=== PATIENT | female | born 1960 | race Caucasian/White ===

== ENCOUNTER → 2016-12-12 | Day surgery (SDC) | payer OTHER ==
[2016-12-05 11:06] VITALS: Ht 154.9 cm; Wt 138.6 kg
[~2016-12-12] VITALS: Ht 154.9 cm; Wt 138.6 kg
[~2016-12-12] MED LIST: ATOR10TA88 PO; LIDOCAINE HCL 2% 2 ML VIAL (20MG/ML) ONE; LISI10TA PO; PHENYLEPHRINE 100MCG/ML 5ML SYR ONE; PROPOFOL IV EMULSION 10 MG/ML 20 ML VIAL IV ONE; SODIUM CHLORIDE 0.9% 500ML 500 ML IV ONE; TRIA75TA53 PO
--- NOTE | 2016-12-12 10:32 | Endo History and Physical ---
History & Physical Date of Service: Dec 12, 2016. Chief Complaint: screening Referring Physician: Dr. Indira Martinez History of Present Illness Family history of colon cancer (father), screening colonoscopy. Past Medical History Blood Dyscrasias, High Cholesterol, Sleep Apnea, Hypertension Past Surgical History Hx Cardiac Surgery: No Hx Internal Defibrillator: No Hx Pacemaker: No Hx Abdominal Surgery: Yes (APPY) Hx of Implantable Prosthesis: No Hx Post-Op Nausea and Vomiting: No Hx Cancer Surgery: Yes (CATALINO BSO) Hx Thoracic Surgery: No Hx Orthopedic: No Hx Urinary Tract Surgery: No Family History None Social History Smoking Status: Never Smoker Hx Substance Use: No Hx Alcohol Use: No Allergies Coded Allergies: No Known Allergies (Verified , 12/12/16) Current Medications Reported Home Medications Medications Dose Route/Sig Max Daily Dose Days Date Category Maxzide 75MG/50MG (Triamterene/HCTZ) Tab 0.5 Tab PO QAM 11/27/16 Reported Lipitor (Atorvastatin Calcium) 10 Mg Tab 10 Mg PO QAM 01/10/15 Reported Prinivil (Lisinopril) 10 Mg Tab 10 Mg PO QAM 01/10/15 Reported Vital Signs Weight (Kilograms): 138.64 Height (Feet): 5 Height (Inches): 1 Date Time Temp Pulse Resp B/P Pulse Ox O2 Delivery O2 Flow Rate FiO2 12/12/16 10:27 36.6 68 22 230/84 96 Room Air Physical Exam General Appearance: WD/WN, no apparent distress, + obese Respiratory/Chest: Auscultation: breath sounds normal, no wheezing Cardiovascular: Heart Auscultation: RRR, no murmurs Abdomen: Inspection & Palpation: soft, no tenderness, guarding & rebound Assessment and Plan Colonoscopy today.
--- NOTE | 2016-12-12 11:06 | GI REPORT ---
Procedure Date: 12/12/2016 10:43 AM Procedure: Colonoscopy Indications: Colon cancer screening in patient at increased risk: Colorectal cancer in father Medicines: Monitored Anesthesia Care Complications: No immediate complications. Estimated blood loss: None. Estimated Blood Loss: Estimated blood loss: none. Procedure: Pre-Anesthesia Assessment: - Prior to the procedure, a History and Physical was performed, and patient medications, allergies and sensitivities were reviewed. The patient's tolerance of previous anesthesia was reviewed. - ASA Grade Assessment: III - A patient with severe systemic disease. After I obtained informed consent, the scope was passed under direct vision. Throughout the procedure, the patient's blood pressure, pulse, and oxygen saturations were monitored continuously. The scope was introduced through the anus and advanced to the terminal ileum, with identification of the appendiceal orifice and IC valve. The colonoscopy was performed with ease. The patient tolerated the procedure well. The quality of the bowel preparation was excellent. The bowel preparation used was split dose MIralax. Findings: Multiple diverticula in the sigmoid, scattered diverticula were found in the entire colon. Impression: - Diverticulosis in the entire examined colon. - No specimens collected. - The colon was otherwise normal to the terminal ileum with retroflexed views of the colon and terminal ileum. Recommendation: - Repeat colonoscopy in 5 years for screening purposes. Leroy Wren M.D. Leroy Wren MD 12/12/2016 11:06:35 AM This report has been signed electronically. Note Initiated On: 12/12/2016 10:43 AM I attest to the content of the Intraoperative Record and orders documented therein, exceptions below
--- NOTE | 2016-12-12 11:07 | Discharge Instructions ---
Endoscopy Patient Instructions Date / Procedure(s) Performed Dec 12, 2016. Colonoscopy Allergy Information Coded Allergies: No Known Allergies (Verified , 12/12/16) Discharge Date / Findings Dec 12, 2016. Diverticulosis Medication Instructions Restart Stopped Medication(s): Restart all medications today Provider Instructions Activity Restrictions - No exercising or heavy lifting for 24 hours. - Do not drink alcohol the day of the procedure. - Do not drive a car or operate machinery until the day after the procedure. - Do not make any important decisions or sign important papers in 24 hours after the procedure. Following Day: - Return to full activity which may include returning to work/school. Diet Start your diet with liquids and light foods (jello, soup, juice, toast). Then eat your usual diet if not nauseated. Treatment For Common After Affects For mild abdominal pain, bloating, or excessive gas: - Rest - Eat lightly - Lie on right side Repeat screening colonoscopy in five years. Follow-Up Information Follow-up with Dr. Indira Martinez as scheduled Anesthesia Information What You Should Know You have had a procedure that required some medicine to reduce anxiety and discomfort. This treatment is called moderate sedation. After receiving the treatment, you may be sleepy, but you will be able to breathe on your own. The effects of the treatment may last for several hours. Follow these instructions along with Activity/Diet recommendations noted above: * Do NOT do anything where dizziness or clumsiness would be dangerous. * Rest quietly at home today, then you can be up and about tomorrow. * Have a responsible person stay with you the rest of today. * You may have had an I.V. today. If so, you may take the dressing off later today. Recommendations Call your doctor if: * Trouble breathing * Continuous vomiting for more than 24 hours * Temperature above 101 degrees * Severe abdominal pain or bloating * Pain not relieved by pain medicine ordered * There is increased drainage or redness from any incision * A large amount of rectal bleeding greater than 2-3 tablespoons. (If you had a polyp/s removed or have hemorrhoids, a small amount of blood - from the rectum is to be expected.) * You have any unanswered questions or concerns. IN THE EVENT OF A SERIOUS EMERGENCY, GO TO THE NEAREST EMERGENCY ROOM Your discharge instructions were prepared by provider Leroy Wren. Patient Instructions Signature Page Lety Phelps Patient (or Guardian) Signature/Date: I have read and understand the instructions given to me by my caregivers. Caregiver/RN/Doctor Signature/Date: The above-named patient and/or guardian has received patient instructions on this date. + Original Patient Signature Page (only) stays with chart. Please make copy for patient.
[2016-12-12 11:37] VITALS: BP 126/74; PULSE 60; O2SAT 99
--- NOTE | 2016-12-12 15:18 | Anesthesiology Progress Note ---
Anesthesia Post Op Note Date & Time Dec 12, 2016 at 15:18 Vital Signs Pain Intensity: 0 Vital Signs Past 12 Hours Date Time Temp Pulse Resp B/P Pulse Ox O2 Delivery O2 Flow Rate FiO2 12/12/16 11:37 60 20 126/74 99 Room Air 12/12/16 11:22 61 20 129/84 99 Room Air 12/12/16 11:07 50 20 124/86 99 Room Air 12/12/16 10:27 36.6 68 22 230/84 96 Room Air Notes Mental Status: alert / awake / arousable, participated in evaluation Pt Amnestic to Procedure: Yes Nausea / Vomiting: adequately controlled Pain: adequately controlled Airway Patency, RR, SpO2: stable & adequate BP & HR: stable & adequate Hydration State: stable & adequate Anesthetic Complications: no major complications apparent
== END | disposition home or self-care (01) ==
LOC: C.GI 09:58
PROVIDERS: ATTEND Internal Medicine Gastroenterology
DX: Z12.11 Encounter for screening for malignant neoplasm of colon (principal); Z80.0 Family history of malignant neoplasm of digestive organs; K57.30 Diverticulosis of large intestine without perforation or abscess without bleeding; D75.9 Disease of blood and blood-forming organs, unspecified; E78.5 Hyperlipidemia, unspecified; I10 Essential (primary) hypertension; Z98.890 Other specified postprocedural states

== ENCOUNTER 2020-05-18 16:41 | Inpatient (IN) ==
[2020-05-18] MEDS ORDERED: ACETAMINOPHEN 1,000 MG/100 ML VIAL IV STA (17:03)
[2020-05-18] MEDS ORDERED: SODIUM CHLORIDE 0.9% 1000ML 1,000 ML IV SCH (17:15)
[2020-05-18 17:33] LABS: Basophils # (auto) 0.01 K/uL (0-0.2); Basophils % (auto) 0.2 %; Eosinophils # (auto) 0.02 K/uL (0-0.5); Eosinophils % (auto) 0.4 %; Hematocrit (blood only) 49.4 % (37-47); Immature Granulocytes # (auto) 0.01 K/uL (0.00-0.02); Immature Granulocytes % (auto) 0.2 %; Lymphocytes # (auto) 1.81 K/uL (1.2-3.4); Lymphocytes % (auto) 33.2 %; Mean Corpuscular Hemoglobin 27.2 pg (25-34); Mean Corpuscular Hgb Conc 32.4 g/dL (32-36); Mean Platelet Volume 9.9 fL (7.4-10.4); Monocytes # (auto) 0.59 K/uL (0.11-0.59); Monocytes % (auto) 10.8 %; Neutrophils # (auto) 3.01 K/uL (1.4-6.5); Neutrophils % (auto) 55.2 %; Platelet Count 172 K/uL (130-400); RDW Coefficient of Variation 16.3 % (11.5-14.5); RDW Standard Deviation 50.6 fL (36.4-46.3); Red Blood Count 5.88 M/uL (4.2-5.4); White Blood Count 5.45 K/uL (4.8-10.8)
[2020-05-18 17:41] LABS: Alanine Aminotransferase 41 U/L (12-78); Albumin Level 3.2 gm/dl (3.4-5.0); Aspartate Aminotransferase 41 U/L (15-37); Blood Urea Nitrogen 11 mg/dl (7-18); Calcium 9.1 mg/dl (8.5-10.1); Carbon Dioxide 30 mmol/L (21-32); Chloride 100 mmol/L (98-107); Creatinine Clr Calc Pharmacy 86.2 ml/min; Est GFR (Non-African American) 63.8; Glucose 90 mg/dl (70-99); Magnesium 2.1 mg/dl (1.8-2.4); Potassium 3.4 mmol/L (3.5-5.1); Sodium 137 mmol/L (136-145)
[2020-05-18 17:45] LABS: Albumin Globulin Ratio 0.7 (0.9-2); Alkaline Phosphatase 71 U/L (45-117); Bilirubin,Total 0.6 mg/dl (0.2-1); Globulin 4.4 gm/dl (2.5-4.0); Total Protein 7.6 gm/dl (6.4-8.2); Troponin I < 0.015 ng/ml (0-0.045)
--- NOTE | 2020-05-18 18:16 | XRay Report ---
XR chest 1V portable CLINICAL HISTORY: Dyspnea COMPARISON STUDY: No previous studies for comparison. FINDINGS: There is compromised by suboptimal penetration. No pneumothorax is identified. Suspected sm all left pleural effusion is noted. No lobar consolidation is present. Mild left basilar opacity is p resent. There is moderate cardiomegaly without overt edema. IMPRESSION: 1. Mild left lower lung opacity. Atelectasis is favored although an infectious process could appear s imilar. 2. Small left pleural effusion. 3. Moderate cardiomegaly. 4. Exam compromised by suboptimal penetration. ACT 112: Negative or not required by law. Electronically signed by: Pop Montague M.D. 05/18/2020 6:15 PM
[2020-05-18 18:52] LABS: Partial Thromboplastin Ratio 0.9; Partial Thromboplastin Time 25.5 Seconds (21.0-31.0); Prothrombin Time 10.8 Seconds (9.0-12.0)
[2020-05-18] MEDS ORDERED: DEXAMETHASONE SOD INJ 10 MG/ML VIAL IV ONE (19:03)
[2020-05-18] MEDS ORDERED: cefTRIAXone SODIUM 2,000 MG/70 ML BAG IV STA (19:14)
[2020-05-18] MEDS ORDERED: AZITHROMYCIN 500 MG in DEXTROSE 5% 250 ML IV STA (19:14)
[2020-05-18] MEDS ORDERED: POTASSIUM CHLORIDE 20 MEQ TABCR PO STA (19:36)
[2020-05-18] MEDS ORDERED: ALBUTEROL HFA 8 GM INHALER INH ONE (19:49)
[2020-05-18] MEDS ORDERED: CONSULT PHARMACY STA (20:21)
--- NOTE | 2020-05-18 20:21 | History & Physical Report ---
Date of Service May 18, 2020 Assessment & Plan (1) Acute hypoxemic respiratory failure due to COVID-19: Secondary to COVID-19 pneumonia No overt sepsis for now History restrictive lung disease as per records Hypertension, slight elevated Hypokalemia secondary to home diuretic Rx uterine cancer status post surgery Medical telemetry Supplemental O2 Decadron course Pulmonary consult Re: Respiratory failure, COVID pneumonia Replace potassium, hold home diuretics for now Monitor BP, initiate amlodipine if uncontrolled DVT prophylaxis. SCDs RE hemoptysis Full code Case discussed with Dr. Elizondo ([employer] secretary). Remdesivir "soft call" in his opinion for patient's case but may proceed with antiviral administration. Text document was generated using [employer] voice recognition software. It may contain grammatical or spelling errors. Kindly contact undersigned for clarification of any documentation item in question. History of Present Illness Chief Complaint: Shortness of breath,, possible COVID Primary Care Provider: Dr. Gilman History obtained from patient and records. Medical history significant for hypertension, hyperlipidemia, restrictive lung disease as per records, SELENE on CPAP, uterine cancer status post surgery. Patient has not been well the last 2 weeks. Junky cough later noted to be blood-tinged as per patient. Shortness of breath, wheezing, and chills. No chest pain. Denies aspiration. noted to have a positive outpatient COVID 19 test. Family camping get together a few weeks ago. Patient seen at PCP's office today. Patient noted to be tachypneic, decreased breath sounds noted on left side with wheezing as per documentation. Patient sent by PCP to the ER for evaluation. O2 sats noted to be 80s on RA at the ER at some point. Outpatient rapid COVID-19 swab done at PCP's office found to be positive. Patient received Decadron at the ER. Medical History as above Surgical History : TAHBSO, appendectomy Family History : Leukemia, colon cancer, rheumatoid arthritis, diabetes, heart disease Personal/Social history : Non-smoker, no EtOH intake, disabled Allergies Allergy/AdvReac Type Severity Reaction Status Date / Time No Known Allergies Allergy Verified 05/18/20 20:55 Home Medications Home Medications Medication Instructions Recorded Confirmed Type albuterol sulfate 2 puff INHALATION QID 05/18/20 05/18/20 History albuterol sulfate [Proventil] 2.5 mg INHALATION Q4H PRN 05/18/20 05/18/20 History fluticasone propionate [Flovent 2 puff INHALATION BID 05/18/20 05/18/20 History HFA] hydrochlorothiazide 25 mg PO DAILY 05/18/20 05/18/20 History levothyroxine 25 mcg PO QAM 05/18/20 05/18/20 History Past Med/Surg History Medical History (Updated 05/19/20 @ 01:43 by Nargis Tillman MD) Asthma Hypertension Obesity Thyroid disease Social History Smoking Status: Never smoker Hx Alcohol Use: No Hx Substance Use: No Preferred Language: [place] Communication Ability: Effective Personal Lines Appraiser Required: No Beliefs That Will Affect Care: None Current Living Situation: Spouse Other Information That Helps Us Care for You: No Feels Safe at Home: Yes Safety Concerns: Feels Safe At This Time Review of Systems Review of Systems: As per HPI, all 10 systems reviewed, all other ROS negative Physical Exam Physical Exam: GENERAL: Comfortable, morbidly obese, anxious, no respiratory distress SKIN: Normal color, warm HEENT: Bespectacled, [place] palpebral conjunctivae, no ptosis, dry buccal mucosa, nasal cannula in place NECK : Supple, short neck, no tenderness CHEST : Decreased breath sounds, occasional expiratory wheezes, no tenderness HEART : RRR, no obvious murmurs ABDOMEN: Some distention, nontender EXTREMITIES : Minimal LE swelling, no LE tenderness, no other conspicuous deformities noted NEUROLOGIC : Coherent, no facial asymmetry, no other gross focality Results & Data Results & Data ([facility]) Vital Signs (Past 12 Hours) Vital Signs Temp Pulse Pulse Resp BP BP Pulse Ox 05/18/20 19:26 37.1 C 65 20 155/88 H 96 05/18/20 17:58 73 24 156/89 H 96 05/18/20 17:07 88 L 05/18/20 16:49 38.0 C H 85 22 146/106 H 93 Laboratory Results Laboratory Results WBC 5.45 K/uL (4.8-10.8) 05/18/20 16:20 RBC 5.88 M/uL (4.2-5.4) H 05/18/20 16:20 Hgb 16.0 g/dL (12.0-16.0) 05/18/20 16:20 Hct 49.4 % (37-47) H 05/18/20 16:20 MCV 84.0 fL (80-100) 05/18/20 16:20 MCH 27.2 pg (25-34) 05/18/20 16:20 MCHC 32.4 g/dL (32-36) 05/18/20 16:20 RDW Std Deviation 50.6 fL (36.4-46.3) H 05/18/20 16:20 RDW Coeff of Lori 16.3 % (11.5-14.5) H 05/18/20 16:20 Plt Count 172 K/uL (130-400) 05/18/20 16:20 MPV 9.9 fL (7.4-10.4) 05/18/20 16:20 Immature Gran % (Auto) 0.2 % 05/18/20 16:20 Neut % (Auto) 55.2 % 05/18/20 16:20 Lymph % (Auto) 33.2 % 05/18/20 16:20 Dixon % (Auto) 10.8 % 05/18/20 16:20 Eos % (Auto) 0.4 % 05/18/20 16:20 Baso % (Auto) 0.2 % 05/18/20 16:20 Neut # (Auto) 3.01 K/uL (1.4-6.5) 05/18/20 16:20 Lymph # (Auto) 1.81 K/uL (1.2-3.4) 05/18/20 16:20 Dixon # (Auto) 0.59 K/uL (0.11-0.59) 05/18/20 16:20 Eos # (Auto) 0.02 K/uL (0-0.5) 05/18/20 16:20 Baso # (Auto) 0.01 K/uL (0-0.2) 05/18/20 16:20 Immature Gran # (Auto) 0.01 K/uL (0.00-0.02) 05/18/20 16:20 PT 10.8 Seconds (9.0-12.0) 05/18/20 18:31 INR 1.0 (0.9-1.1) 05/18/20 18:31 APTT 25.5 Seconds (21.0-31.0) 05/18/20 18:31 PTT Ratio 0.9 05/18/20 18:31 Sodium 137 mmol/L (136-145) 05/18/20 16:20 Potassium 3.4 mmol/L (3.5-5.1) L 05/18/20 16:20 Chloride 100 mmol/L (98-107) 05/18/20 16:20 Carbon Dioxide 30 mmol/L (21-32) 05/18/20 16:20 Anion Gap 7.0 (3-11) 05/18/20 16:20 BUN 11 mg/dl (7-18) 05/18/20 16:20 Creatinine 0.96 mg/dl (0.6-1.2) 05/18/20 16:20 Est Cr Clr Drug Dosing 86.2 ml/min 05/18/20 16:20 Est GFR ( Amer) 74.0 05/18/20 16:20 Est GFR (Non-Af Amer) 63.8 05/18/20 16:20 BUN/Creatinine Ratio 11.0 (10-20) 05/18/20 16:20 Glucose 90 mg/dl (70-99) 05/18/20 16:20 Calcium 9.1 mg/dl (8.5-10.1) 05/18/20 16:20 Magnesium 2.1 mg/dl (1.8-2.4) 05/18/20 16:20 Total Bilirubin 0.6 mg/dl (0.2-1) 05/18/20 16:20 AST 41 U/L (15-37) H 05/18/20 16:20 ALT 41 U/L (12-78) 05/18/20 16:20 Alkaline Phosphatase 71 U/L (45-117) 05/18/20 16:20 Troponin I < 0.015 ng/ml (0-0.045) 05/18/20 16:20 Total Protein 7.6 gm/dl (6.4-8.2) 05/18/20 16:20 Albumin 3.2 gm/dl (3.4-5.0) L 05/18/20 16:20 Globulin 4.4 gm/dl (2.5-4.0) H 05/18/20 16:20 Albumin/Globulin Ratio 0.7 (0.9-2) L 05/18/20 16:20 COVID-19 Eval Order Covid19 Done at [facility] 05/18/20 Unknown COVID-19 PCR POSITIVE (Negative) A* 05/18/20 Unknown Diagnostic Findings Chest x-ray : 1. Mild left lower lung opacity. Atelectasis is favored although an infectious process could appear similar. 2. Small left pleural effusion. 3. Moderate cardiomegaly. 4. Exam compromised by suboptimal penetration. EKG as per my interpretation : Rate 85, NSR, LAD, LAFB, LVH, no ischemia
[2020-05-18] MEDS ORDERED: ALBUTEROL HFA 8 GM INHALER INH STA (21:04)
[2020-05-18] MEDS ORDERED: REMDESIVIR 200 mg: Day 1 IV STA (21:06)
[2020-05-18] MEDS ORDERED: ALBUTEROL HFA 8 GM INHALER INH PRN (21:32)
[2020-05-18] MEDS ORDERED: NSS + 20MEQ KCL 20 MEQ/1,000 ML BAG IV ONE (22:00)
[2020-05-18] MEDS: DOXYCYCLINE HYCLATE 100 MG CAP PO SCH (22:44)
[2020-05-18] MEDS: guaiFENesin 600 MG TABCR PO SCH (22:44)
[2020-05-18] MEDS: NSS 30mL Flush, Days 1-5 IV SCH (22:47)
[2020-05-18 22:50] LABS: Hematocrit (blood only) 50.7 % (37-47); Hemoglobin 15.8 g/dL (12.0-16.0)
[2020-05-18] MEDS ORDERED: AMLODIPINE BESYLATE 5 MG TAB PO ONE (23:06)
--- NOTE | 2020-05-19 01:40 | Emergency Department Note ---
History of Present Illness General Chief complaint: Shortness of Breath/Dyspnea Time Seen by Provider: 05/18/20 16:45 Source: patient and RN notes reviewed Mode of arrival: EMS Limitations: no limitations History of Present Illness Provider complaint: Fever, shortness of breath This patient is a 60-year-old female who presents emergency department with complaints of fever and shortness of breath for the last 2 days. The patient's is known to be COVID positive. She states they believe he contracted the virus while camping. Patient was evaluated by her primary care physician today in the parking lot of the office building and swabbed for COVID. Patient was noted to be hypoxic with an increased work of breathing and sent to the emergency department for further evaluation. Patient admits to myalgias, some minimal chest discomfort, primarily under the right breast, coughing and fevers. She denies any vomiting or diarrhea. Home Medications Home Medications Medication Instructions Recorded Confirmed Type albuterol sulfate 2 puff INHALATION QID 05/18/20 05/18/20 History albuterol sulfate [Proventil] 2.5 mg INHALATION Q4H PRN 05/18/20 05/18/20 History fluticasone propionate [Flovent 2 puff INHALATION BID 05/18/20 05/18/20 History HFA] hydrochlorothiazide 25 mg PO DAILY 05/18/20 05/18/20 History levothyroxine 25 mcg PO QAM 05/18/20 05/18/20 History Allergies Allergy/AdvReac Type Severity Reaction Status Date / Time No Known Allergies Allergy Verified 05/18/20 20:55 Past Med/Surg History Medical History (Updated 05/19/20 @ 23:44 by Nargis Tillman MD) Asthma Hypertension Obesity Thyroid disease Social History Smoking Status: Never smoker Hx Alcohol Use: No Hx Substance Use: No Preferred Language: [place] Communication Ability: Effective Bonderizer Required: No Beliefs That Will Affect Care: None Current Living Situation: Spouse Other Information That Helps Us Care for You: No Feels Safe at Home: Yes Safety Concerns: Feels Safe At This Time Review of Systems See HPI for pertinent positives & negatives. and A total of 10 systems reviewed and were otherwise negative Physical Exam Vital Signs Vital Signs - 24 hr 05/18/20 16:49 05/18/20 17:07 05/18/20 17:58 Temperature 38.0 C H Temperature Source Oral Pulse Rate 85 Pulse Rate [Left Finger] 73 Respiratory Rate 22 24 Respiratory Effort / Characteristics Spontaneous Blood Pressure 146/106 H Blood Pressure [Left Arm] 156/89 H Blood Pressure Mean 119 Blood Pressure Mean [Left Arm] 111 Blood Pressure Position Sitting Pulse Oximetry 93 88 L 96 Oxygen Delivery Method Room Air Room Air Nasal Cannula Oxygen Flow Rate 2 Sepsis Recent Fever Within 48 Hours Yes Sepsis New/Unexplained Change in Mental Status No Sepsis Action Taken by Nursing No Action Required Oxygen Flow Rate - Titration 2 Pulse Oximetry Post Tiitration 97 05/18/20 19:26 Temperature 37.1 C Temperature Source Oral Pulse Rate Pulse Rate [Left Finger] 65 Respiratory Rate 20 Respiratory Effort / Characteristics Blood Pressure Blood Pressure [Left Arm] 155/88 H Blood Pressure Mean Blood Pressure Mean [Left Arm] 110 Blood Pressure Position Pulse Oximetry 96 Oxygen Delivery Method Nasal Cannula Oxygen Flow Rate 2 Sepsis Recent Fever Within 48 Hours Sepsis New/Unexplained Change in Mental Status Sepsis Action Taken by Nursing Oxygen Flow Rate - Titration Pulse Oximetry Post Tiitration Vital signs reviewed. Noted to be febrile, hypoxic General: Chronically ill-appearing 60-year-old female in significant discomfort. HEENT: No scleral icterus, PERRLA, neck supple. Atraumatic. Cardiovascular: Regular rate and rhythm, no extra sounds. Pulmonary: Increased work of breathing, coarse breath sounds at the bilateral bases but distant. Limited by body habitus. Abdomen: Soft, obese, nontender, nondistended, positive bowel sounds. Musculoskeletal: Atraumatic, no peripheral edema. Neurologic: Patient awake alert and oriented x 3 Skin: Warm, dry, no rash Course Administered Medications Amlodipine Besylate (Amlodipine Besylate 5 Mg Tab) 5 mg PO 1999 [facility] Stop: 06/18/20 19:59 Last Admin: 05/19/20 21:32 Dose: 5 mg Documented by: [id number] Ascorbic Acid (Ascorbic Acid 500 Mg Tab) 500 mg PO BID [facility] Stop: 06/18/20 08:59 Last Admin: 05/19/20 21:36 Dose: 500 mg Documented by: [id number] Admin: 05/19/20 09:02 Dose: 500 mg Documented by: [id number] Doxycycline Hyclate (Doxycycline Hyclate 100 Mg Cap) 100 mg PO BID@0800 [facility] Stop: 05/25/20 21:59 Last Admin: 05/19/20 21:35 Dose: 100 mg Documented by: [id number] Admin: 05/19/20 08:56 Dose: 100 mg Documented by: [id number] Admin: 05/18/20 22:44 Dose: 100 mg Documented by: [id number] Enoxaparin Sodium (Enoxaparin Inj 40 Mg/0.4 Ml Syr) 40 mg SQ QPM JENNIFER Stop: 06/18/20 20:59 Last Admin: 05/19/20 21:35 Dose: 40 mg Documented by: [id number] Guaifenesin (Guaifenesin 600 Mg Tabcr) 600 mg PO BID@0800,2000 [facility] Stop: 06/17/20 21:59 Last Admin: 05/19/20 21:32 Dose: 600 mg Documented by: [id number] Admin: 05/19/20 08:55 Dose: 600 mg Documented by: [id number] Admin: 05/18/20 22:44 Dose: 600 mg Documented by: [id number] Ceftriaxone Sodium 2,000 mg/ (Dextrose) 70 mls @ 100 mls/hr IV Q24H JENNIFER; Pro tocol Stop: 05/26/20 19:59 Last Infusion: 05/19/20 22:19 Dose: 0 mls/hr Documented by: [id number] Admin: 05/19/20 21:15 Dose: 100 mls/hr Documented by: [id number] Dexamethasone 6 mg/ Syringe 1.5 mls @ 1 mls/min IV Q24H [facility] Stop: 05/27/20 08:02 Last Admin: 05/19/20 08:55 Dose: 1 mls/min Documented by: [id number] Remdesivir 100 mg/ Sodium (Chloride) 250 mls @ 250 mls/hr IV Q24H [facility]; Protocol Stop: 05/22/20 20:59 Last Infusion: 05/19/20 22:19 Dose: 0 mls/hr Documented by: [id number] Admin: 05/19/20 21:09 Dose: 250 mls/hr Documented by: [id number] Multivitamins (Multivitamin Tab) 1 tab PO QAM [facility] Stop: 06/18/20 08:59 Last Admin: 05/19/20 10:16 Dose: 1 tab Documented by: [id number] Sodium Chloride (Nss 30ml Flush, Days 1-5) 30 ml IV Q24H [facility] Stop: 05/22/20 22:01 Last Admin: 05/19/20 22:42 Dose: 30 ml Documented by: [id number] Admin: 05/18/20 22:47 Dose: 30 ml Documented by: [id number] Vitamin D (Cholecalciferol 1,000 Units 25 Mcg Tab) 1,000 units PO QAM JENNIFER Stop: 06/18/20 08:59 Last Admin: 05/19/20 09:02 Dose: 1,000 units Documented by: [id number] Zinc Sulfate (Zinc Sulfate 220 Mg Capsule) 220 mg PO QAM JENNIFER Stop: 06/18/20 08:59 Last Admin: 05/19/20 09:02 Dose: 220 mg Documented by: [id number] Discontinued Medications Albuterol (Albuterol Hfa 8 Gm Inhaler) 2 puffs INH NOW STA Stop: 05/18/20 21:05 Last Admin: 05/18/20 21:05 Dose: Not Given Documented by: [id number] Albuterol (Albuterol Hfa 8 Gm Inhaler) Confirm Administered Dose 60 puffs INH .STK-MED ONE Stop: 05/18/20 19:50 Last Admin: 05/18/20 19:57 Dose: 2 puffs Documented by: [id number] Amlodipine Besylate (Amlodipine Besylate 5 Mg Tab) 2.5 mg PO NOW ONE Stop: 05/18/20 23:07 Last Admin: 05/19/20 00:48 Dose: 2.5 mg Documented by: [id number] Dexamethasone (Dexamethasone Sod Inj 10 Mg/Ml Vial) 6 mg IV NOW ONE Stop: 05/18/20 19:04 Last Admin: 05/18/20 19:22 Dose: 6 mg Documented by: [id number] Sodium Chloride (Nss 1000ml) 1,000 mls @ 100 mls/hr IV .Q10H JENNIFER Stop: 05/19/20 03:14 Last Infusion: 05/18/20 21:15 Dose: 0 mls/hr Documented by: [id number] Admin: 05/18/20 17:32 Dose: 100 mls/hr Documented by: [id number] Acetaminophen (Ofirmev) 1,000 mg in 100 mls @ 400 mls/hr IV NOW STA Stop: 05/18/20 17:17 Last Infusion: 05/18/20 19:39 Dose: 0 mls/hr Documented by: [id number] Admin: 05/18/20 17:31 Dose: 400 mls/hr Documented by: [id number] Ceftriaxone Sodium (Rocephin) 2,000 mg in 70 mls @ 140 mls/hr IV NOW STA Stop: 05/18/20 19:43 Last Infusion: 05/18/20 19:52 Dose: 0 mls/hr Documented by: [id number] Admin: 05/18/20 19:22 Dose: 140 mls/hr Documented by: [id number] Azithromycin 500 mg/ Dextrose 255 mls @ 127.5 mls/hr IV NOW STA Stop: 05/18/20 21:13 Last Infusion: 05/18/20 22:37 Dose: 0 mls/hr Documented by: [id number] Admin: 05/18/20 19:57 Dose: 127.5 mls/hr Documented by: [id number] Remdesivir 200 mg/ Sodium (Chloride) 250 mls @ 125 mls/hr IV NOW STA; Protocol Stop: 05/18/20 23:05 Last Infusion: 05/19/20 00:56 Dose: 0 mls/hr Documented by: [id number] Admin: 05/18/20 22:46 Dose: 125 mls/hr Documented by: [id number] Potassium Chloride/Sodium Chloride (Normal Saline W/20 Meq Kcl) 20 meq in 1,000 mls @ 60 mls/hr IV .[id number] ONE Stop: 05/19/20 14:39 Last Infusion: 05/19/20 19:30 Dose: 0 mls/hr Documented by: [id number] Admin: 05/18/20 22:45 Dose: 60 mls/hr Documented by: [id number] Potassium Chloride (Potassium Chloride 20 Meq Tabcr) 40 meq PO NOW STA Stop: 05/18/20 19:37 Last Admin: 05/18/20 19:57 Dose: 40 meq Documented by: [id number] Medical Decision Making Differential Diagnosis Differential diagnosis: Etiologies such as viral syndrome, otitis, pharyngitis, pneumonia, influenza, meningitis, urinary tract infection, septic arthritis, soft tissue infectious process, intra-abdominal process, sepsis, bacteremia, as well as others were entertained. Medical Records Attestation: I reviewed the patient's medical records. Home Medications Current Medication List: was personally reviewed by me Laboratory Data Attestation: I reviewed the patient's lab results. Result diagrams: 05/19/20 07:40 05/19/20 07:40 Lab Results 05/18/20 05/18/20 05/18/20 Range/Units 16:20 16:20 16:20 WBC 5.45 (4.8-10.8) K/uL RBC 5.88 H (4.2-5.4) M/uL Hgb 16.0 (12.0-16.0) g/dL Hct 49.4 H (37-47) % MCV 84.0 (80-100) fL MCH 27.2 (25-34) pg MCHC 32.4 (32-36) g/dL RDW Std Deviation 50.6 H (36.4-46.3) fL RDW Coeff of Lori 16.3 H (11.5-14.5) % Plt Count 172 (130-400) K/uL MPV 9.9 (7.4-10.4) fL Immature Gran % (Auto) 0.2 % Neut % (Auto) 55.2 % Lymph % (Auto) 33.2 % [place] % (Auto) 10.8 % Eos % (Auto) 0.4 % Baso % (Auto) 0.2 % Neut # (Auto) 3.01 (1.4-6.5) K/uL Lymph # (Auto) 1.81 (1.2-3.4) K/uL [place] # (Auto) 0.59 (0.11-0.59) K/uL Eos # (Auto) 0.02 (0-0.5) K/uL Baso # (Auto) 0.01 (0-0.2) K/uL Immature Gran # (Auto) 0.01 (0.00-0.02) K/uL PT Cancelled INR Cancelled APTT Cancelled PTT Ratio Cancelled Sodium 137 (136-145) mmol/L Potassium 3.4 L (3.5-5.1) mmol/L Chloride 100 (98-107) mmol/L Carbon Dioxide 30 (21-32) mmol/L Anion Gap 7.0 (3-11) BUN 11 (7-18) mg/dl Creatinine 0.96 (0.6-1.2) mg/dl Est Cr Clr Drug Dosing 86.2 ml/min Est GFR ( Amer) 74.0 Est GFR (Non-Af Amer) 63.8 BUN/Creatinine Ratio 11.0 (10-20) Glucose 90 (70-99) mg/dl Calcium 9.1 (8.5-10.1) mg/dl Magnesium 2.1 (1.8-2.4) mg/dl Total Bilirubin 0.6 (0.2-1) mg/dl AST 41 H (15-37) U/L ALT 41 (12-78) U/L Alkaline Phosphatase 71 (45-117) U/L Troponin I < 0.015 (0-0.045) ng/ml Total Protein 7.6 (6.4-8.2) gm/dl Albumin 3.2 L (3.4-5.0) gm/dl Globulin 4.4 H (2.5-4.0) gm/dl Albumin/Globulin Ratio 0.7 L (0.9-2) 05/18/20 Range/Units 18:31 WBC (4.8-10.8) K/uL RBC (4.2-5.4) M/uL Hgb (12.0-16.0) g/dL Hct (37-47) % MCV (80-100) fL MCH (25-34) pg MCHC (32-36) g/dL RDW Std Deviation (36.4-46.3) fL RDW Coeff of Lori (11.5-14.5) % Plt Count (130-400) K/uL MPV (7.4-10.4) fL Immature Gran % (Auto) % Neut % (Auto) % Lymph % (Auto) % [place] % (Auto) % Eos % (Auto) % Baso % (Auto) % Neut # (Auto) (1.4-6.5) K/uL Lymph # (Auto) (1.2-3.4) K/uL [place] # (Auto) (0.11-0.59) K/uL Eos # (Auto) (0-0.5) K/uL Baso # (Auto) (0-0.2) K/uL Immature Gran # (Auto) (0.00-0.02) K/uL PT 10.8 INR 1.0 APTT 25.5 PTT Ratio 0.9 Sodium (136-145) mmol/L Potassium (3.5-5.1) mmol/L Chloride (98-107) mmol/L Carbon Dioxide (21-32) mmol/L Anion Gap (3-11) BUN (7-18) mg/dl Creatinine (0.6-1.2) mg/dl Est Cr Clr Drug Dosing ml/min Est GFR ( Amer) Est GFR (Non-Af Amer) BUN/Creatinine Ratio (10-20) Glucose (70-99) mg/dl Calcium (8.5-10.1) mg/dl Magnesium (1.8-2.4) mg/dl Total Bilirubin (0.2-1) mg/dl AST (15-37) U/L ALT (12-78) U/L Alkaline Phosphatase (45-117) U/L Troponin I (0-0.045) ng/ml Total Protein (6.4-8.2) gm/dl Albumin (3.4-5.0) gm/dl Globulin (2.5-4.0) gm/dl Albumin/Globulin Ratio (0.9-2) Imaging Data Radiologist's Impression: XR chest 1V portable CLINICAL HISTORY: Dyspnea COMPARISON STUDY: No previous studies for comparison. FINDINGS: There is compromised by suboptimal penetration. No pneumothorax is identified. Suspected small left pleural effusion is noted. No lobar consolidation is present. Mild left basilar opacity is present. There is mode rate cardiomegaly without overt edema. IMPRESSION: 1. Mild left lower lung opacity. Atelectasis is favored although an infectious process could appear similar. 2. Small left pleural effusion. 3. Moderate cardiomegaly. 4. Exam compromised by suboptimal penetration. ACT 112: Negative or not required by law. Electronically signed by: Pop Montague M.D. 05/18/2020 6:15 PM Dictated: 05/18/201813 Transcribed: 05/18/201813 ECG Data Attestation: I personally reviewed and interpreted this ECG as follows: Indication: + SOB/dyspnea Rate (beats per minute): 85 Rhythm: + normal sinus ECG Intervals/blocks: + Prolonged QT (471) ECG ST segments: + Normal ST segments ECG Findings: + LVH; no PACs and no PVCs Blood Pressure Blood Pressure Findings: Elevated blood pressure Blood Pressure Disposition: further management by hospitalist MARY ANN Narrative This pt was evaluated and appeared to be in some discomfort. Pt was febrile and hypoxic on RA but stable on n/c. An order for cardiac monitoring was placed and the pt was found to be in a NSR at 85 bpm. CXR was performed and reveals mild left lower lung opacity. Blood cx were obtained and pt was medicated with IV azithromycin and ceftriaxone. IV dexamethasone 6 mg was administered as well as IV NSS. IV acetaminophen 1 gm was administered. Rapid COVID is positive. Pt remained in airborne isolation precautions. Case was d/w the hospitalist for fu rther management. Impression & Plan COVID-19, Acute hypoxemic respiratory failure due to COVID-19, Pneumonia Discharge Plan Visit Data Chief Complaint: Shortness of Breath/Dyspnea ED Provider: Nargis Tillman Discharge Problem: COVID-19, Acute hypoxemic respiratory failure due to COVID-19, Pneumonia Patient Disposition: Admitted As Inpatient Discharge Instructions Interventions: ED Discharge Assessment Last Done: 05/18/20 21:04 Discharge Problem: Pneumonia Qualifiers: Pneumonia type: due to unspecified organism Laterality: left Lung location: lower lobe of lung Qualified Code(s): J18.9 - Pneumonia, unspecified organism
[2020-05-19 08:30] LABS: Hematocrit (blood only) 48.5 % (37-47); Hemoglobin 15.5 g/dL (12.0-16.0); Lymphocytes # (auto) 1.19 K/uL (1.2-3.4); Lymphocytes % (auto) 35.5 %; Mean Corpuscular Hemoglobin 26.5 pg (25-34); Mean Platelet Volume 9.8 fL (7.4-10.4); Monocytes # (auto) 0.31 K/uL (0.11-0.59); Monocytes % (auto) 9.3 %; Neutrophils # (auto) 1.85 K/uL (1.4-6.5); Neutrophils % (auto) 55.2 %; Platelet Count 172 K/uL (130-400); RDW Coefficient of Variation 16.3 % (11.5-14.5); RDW Standard Deviation 49.7 fL (36.4-46.3); Red Blood Count 5.84 M/uL (4.2-5.4); White Blood Count 3.35 K/uL (4.8-10.8)
--- NOTE | 2020-05-19 08:32 | Electrocardiogram Report ---
Test Reason : Blood Pressure : / mmHG Vent. Rate : 085 BPM Atrial Rate : 085 BPM P-R Int : 150 ms QRS Dur : 088 ms QT Int : 396 ms P-R-T Axes : 035 -21 079 degrees QTc Int : 471 ms Poor data quality, interpretation may be adversely affected Normal sinus rhythm Left ventricular hypertrophy with repolarization abnormality Borderline ECG When compared with ECG of 10-JAN-2015 11:36, Left ventricular hypertrophy with repolarization abnormality now present Confirmed by Randall Gann ([id number]) on 05/19/2020 8:31:51 AM Referred By: REFERRED SELF Confirmed By:Randall Gann
[2020-05-19 08:33] LABS: Partial Thromboplastin Ratio 0.9; Partial Thromboplastin Time 26.1 Seconds (21.0-31.0); Prothrombin Time 10.6 Seconds (9.0-12.0)
[2020-05-19 08:50] LABS: BUN Creatinine Ratio 12.5 (10-20); Calcium 8.7 mg/dl (8.5-10.1); Creatinine Clr Calc Pharmacy 98.6 ml/min; Est GFR (African American) 88.2; Est GFR (Non-African American) 76.1; Potassium 3.9 mmol/L (3.5-5.1)
[2020-05-19 08:55] LABS: Ferritin 217.3 ng/ml (8-388)
[2020-05-19] MEDS: guaiFENesin 600 MG TABCR PO SCH ×2 (08:55→21:32)
[2020-05-19] MEDS: dexAMETHasone 6 MG in SYRINGE 0 ML IV SCH (08:55)
[2020-05-19] MEDS: DOXYCYCLINE HYCLATE 100 MG CAP PO SCH ×2 (08:56→21:35)
[2020-05-19] MEDS ORDERED: dexAMETHasone 6 MG in SYRINGE 0 ML IV SCH (09:00)
[2020-05-19] MEDS: CHOLECALCIFEROL 1,000 UNITS 25 MCG TAB PO SCH (09:02)
[2020-05-19] MEDS: ZINC SULFATE 220 MG CAPSULE PO SCH (09:02)
[2020-05-19] MEDS: ASCORBIC ACID 500 MG TAB PO SCH ×2 (09:02→21:36)
--- NOTE | 2020-05-19 09:25 | Pulmonary Consultation ---
Date of Consultation May 19, 2020 Assessment & Plan (1) Acute hypoxemic respiratory failure due to COVID-19: Impression: 60-year-old female with morbid obesity and reported history of restrictive lung disease, likely secondary to body habitus admitted with hypoxemia and novel coronavirus infection. She is saturating well on 2 L nasal cannula. Recommendations: 1. Novel coronavirus infection with associated pneumonia: Primary team was referred back to the published guidelines at [facility] for diagnosis and treatment of novel coronavirus infection. Given her minimal oxygen requirement, remdesivir could be considered although it is not shown a mortality benefit and is merely been shown to decrease symptoms by 24 to 48hours. Decadron is recommended per protocol. Could consider convalescent plasma but the decision regarding this therapy will be deferred to the primary service. Remdesivir and convalescent plasma are typically most helpful if administered within the first 5 or 6 days of onset of symptoms. Clinical benefit after this timeframe has not been shown to be significant. Zinc also recommended per protocol. Should the patient's oxygen requirement worsen, could consider transition to high flow oxygen. I think the patient would be a good candidate for self pronating as this will likely improve VQ mismatch. Will trend inflammatory markers including ferritin, ESR, CRP, and LDH over the first 24 to 48 hours to ensure they are going in the right direction. If she shows a favorable trend, these do not need to be followed in the long-term. 2. Hypoxemia: Suspect this is multifactorial due to VQ mismatch due to basilar atelectasis, potential hypercarbia, and underlying coronavirus infection. Recommend assessing blood gas as the patient is at risk for sleep disordered breathing/obesity hypoventilation. Her baseline bicarbs are markedly elevated. Consideration for outpatient follow-up and potential sleep study may be appropriate. Given the concern for increasing aerosol generation with CPAP or BiPAP, would hold off on any of these therapies for now. Following procalcitonin may be able to guide additional antimicrobial agents. Seems reasonable to continue Rocephin and doxycycline at this point time. 3. Given the patient's minimal oxygen requirement currently, think the patient can be managed by the primary service. Pulmonary will sign off at this point. Should the patient's clinical condition deteriorate, feel free to contact us for additional assistance. (2) Obesity: History of Present Illness Attending Physician: Silvestre Hills MD History of Present Illness Asked by hospitalist to assist in management of this patient with hypoxemic respiratory failure and novel coronavirus infection. History is obtained from discussion with the hospitalist as well as review the electronic medical record. Patient is a 60-year-old morbidly obese female with a BMI of 61 who reported to the emergency room with 2 weeks of progressive respiratory complaints. She had a cough with some blood-tinged phlegm as well as shortness of breath wheezing and chills. Her apparently COVID test and she had been associated with a family gathering. She was seen in her primary care provider's office and hypnic and wheezing. She is sent to the emergency room. Oxygen saturations were noted to be in the low 80% range on room air. Apparently a COVID test was done at the primary care provider's office and reported to be positive. She was admitted Decadron. She is also receiving antibiotics in the form of Rocephin and azithromycin. Procalcitonin is pending. LDH was only 276 with CRP of 2.67 and ferritin normal at 217. Allergies Allergy/AdvReac Type Severity Reaction Status Date / Time No Known Allergies Allergy Verified 05/18/20 20:55 Home Medications Home Medications Medication Instructions Recorded Confirmed Type albuterol sulfate 2 puff INHALATION QID 05/18/20 05/18/20 History albuterol sulfate [Proventil] 2.5 mg INHALATION Q4H PRN 05/18/20 05/18/20 History fluticasone propionate [Flovent 2 puff INHALATION BID 05/18/20 05/18/20 History HFA] hydrochlorothiazide 25 mg PO DAILY 05/18/20 05/18/20 History levothyroxine 25 mcg PO QAM 05/18/20 05/18/20 History Patient History Medical History (Updated 05/19/20 @ 01:43 by Nargis Tillman MD) Asthma Hypertension Obesity Thyroid disease Social History Smoking Status: Never smoker Hx Alcohol Use: No Hx Substance Use: No Preferred Language: Bengali Communication Ability: Effective Rn Float Required: No Beliefs That Will Affect Care: None Current Living Situation: Spouse Other Information That Helps Us Care for You: No Feels Safe at Home: Yes Safety Concerns: Feels Safe At This Time Review of Systems Review of Systems: Per admission H&P Physical Exam Physical Exam: Physical exam deferred per hospital policy regarding conducted by primary admitting service. Please refer to their notes for details. Results & Data Results & Data ([facility]) Vital Signs (Past 12 Hours) Vital Signs Temp Pulse Pulse Resp BP Pulse Ox Pulse Ox 05/19/20 08:50 36.6 C 62 20 165/73 H 96 05/19/20 07:30 59 L 05/19/20 05:15 36.3 C L 72 20 163/95 H 96 05/19/20 00:48 36.8 C 68 20 126/91 96 05/18/20 23:04 76 05/18/20 22:55 36.5 C 74 20 161/93 H 96 05/18/20 22:09 37.1 C 79 20 150/90 H 87 L 05/18/20 21:32 87 L Laboratory Results 05/19/20 07:40 05/19/20 07:40 ESR pending Ferritin 217 LDH 276 CRP 2.67 Procalcitonin pending Diagnostic Findings Chest x-ray from 05/18/2020 was independently reviewed. Lung volumes are low likely due to body habitus. There is some potential hazy opacity at the bilateral bases. No overt consolidation. Mild prominence of the bronchovascular markings PG Care Time/CCT Total # of Minutes Spent Total Time Spent with Patient: Total time spent is greater than 50% in coord ination of care (as documented) at patient's floor/unit and/or counseling patient: Coding Level of Care Code 90849 Inpt Consult Level 4 Diagnoses Acute hypoxemic respiratory failure due to COVID-19 U07.1; J96.01 Obesity E66.9
[2020-05-19] MEDS: MULTIVITAMIN TAB PO SCH (10:16)
--- NOTE | 2020-05-19 18:07 | Hospitalist Progress Note ---
Date of Service May 19, 2020 Assessment & Plan (1) COVID-19: (2) Acute hypoxemic respiratory failure due to COVID-19: Pneumonia Present on admission with worsening SOB tested positive for COVID-19 on Saturday COVID 19 positive CXR showed mild left lower lung opacity Pulmonology on board Remdesivir 100 mg daily, will continue to complete 5 days course Continue Dexamethasone IV for now, will transition to po for 10 days Received Azithromycin in the ER Will monitor ferritin, ESR, CRP, and LDH over the first 24 to 48 Continue Vit C, Zinc, MVI and Vit D Continue Doxycycline and ceftriaxone IV for now Bacteremia Blood cx positive for gram positive cocci MRSA and staph PCR are negative Will continue Rocephin and Doxycycline for now Will repeat blood cx Will consider to get an ECHO if not due to contamination HTN BP elevated starting on Amlodipine 2.5 mg, will increase to 5mg Will resume HCTZ 25mg in am Continue Monitor BP Hypokalemia Possible related to diuretic Continue monitor BMP DVT px will add lovenox subq CODE STATUS FULL CODE Admission and Anticipated Discharge Date Admission Date: May 18, 2020 Subjective Pt was seen and examined Sitting in chair with no distress Pt said that she continues to have SOB with minimal exertion She said that her breathing slightly improves today compared to the last few days Pt said that she continue to cough Denies any chest pain, palpitation, dizziness and SOB Physical Exam Physical Exam: General- No acute distress Head- atraumatic Eyes- PERRL, EOMI, ENT- oropharynx clear Neck- supple, no JVD Lungs- +wheezing Heart- regular rhythm; no murmur Abdomen- normal bowel sounds, soft, nontender Extremities- no calf tenderness Neuro- alert, oriented x 3; PERRL, EOMI; no facial palsy; no dysarthria Skin- warm & dry Results & Data Results & Data ([facility]) Vital Signs (Past 12 Hours) Vital Signs Temp Pulse Pulse Resp BP Pulse Ox 05/19/20 17:20 36.6 C 74 18 170/92 H 96 05/19/20 10:53 36.5 C 66 20 151/87 H 95 05/19/20 08:50 36.6 C 62 20 165/73 H 96 05/19/20 07:30 59 L
[2020-05-19] MEDS ORDERED: AMLODIPINE BESYLATE 5 MG TAB PO SCH ×2 (20:00→21:00)
[2020-05-19] MEDS: REMDESIVIR 100mg: Days 2-5 IV SCH (21:09)
[2020-05-19] MEDS: cefTRIAXone SODIUM 2,000 MG in DEXTROSE 5% 50 ML IV SCH (21:15)
[2020-05-19] MEDS: AMLODIPINE BESYLATE 5 MG TAB PO SCH (21:32)
[2020-05-19] MEDS: ENOXAPARIN INJ 40 MG/0.4 ML SYR SQ SCH (21:35)
[2020-05-19] MEDS ORDERED: REMDESIVIR 100mg: Days 2-5 IV SCH (22:00)
[2020-05-19] MEDS: NSS 30mL Flush, Days 1-5 IV SCH (22:42)
[2020-05-20 09:11] LABS: Hematocrit (blood only) 50.4 % (37-47); Hemoglobin 16.1 g/dL (12.0-16.0); Mean Corpuscular Hemoglobin 26.3 pg (25-34); Mean Corpuscular Hgb Conc 31.9 g/dL (32-36); Mean Corpuscular Volume 82.2 fL (80-100); Mean Platelet Volume 10.5 fL (7.4-10.4); Platelet Count 174 K/uL (130-400); RDW Coefficient of Variation 16.6 % (11.5-14.5); RDW Standard Deviation 49.8 fL (36.4-46.3); Red Blood Count 6.13 M/uL (4.2-5.4); White Blood Count 8.07 K/uL (4.8-10.8)
[2020-05-20] MEDS: CHOLECALCIFEROL 1,000 UNITS 25 MCG TAB PO SCH (09:21)
[2020-05-20] MEDS: dexAMETHasone 6 MG in SYRINGE 0 ML IV SCH (09:21)
[2020-05-20] MEDS: ASCORBIC ACID 500 MG TAB PO SCH ×2 (09:21→20:00)
[2020-05-20] MEDS: DOXYCYCLINE HYCLATE 100 MG CAP PO SCH ×2 (09:21→19:55)
[2020-05-20] MEDS: guaiFENesin 600 MG TABCR PO SCH ×2 (09:22→19:55)
[2020-05-20] MEDS: ZINC SULFATE 220 MG CAPSULE PO SCH (09:22)
[2020-05-20] MEDS: MULTIVITAMIN TAB PO SCH (09:22)
[2020-05-20 09:47] LABS: Alanine Aminotransferase 31 U/L (12-78)
[2020-05-20 10:28] LABS: Aspartate Aminotransferase 26 U/L (15-37)
[2020-05-20 11:15] LABS: BUN Creatinine Ratio 22.7 (10-20); Calcium 8.1 mg/dl (8.5-10.1); Creatinine Clr Calc Pharmacy 116.4 ml/min; Est GFR (African American) 106.5; Est GFR (Non-African American) 91.9; Ferritin 189.1 ng/ml (8-388)
[2020-05-20 11:22] LABS: C Reactive Protein 1.07 mg/dl (0-0.29)
--- NOTE | 2020-05-20 16:59 | Hospitalist Progress Note ---
Date of Service May 20, 2020 Assessment & Plan (1) COVID-19: (2) Acute hypoxemic respiratory failure due to COVID-19: Pneumonia Present on admission with worsening SOB tested positive for COVID-19 on Saturday COVID 19 positive CXR showed mild left lower lung opacity Pulmonology on board Remdesivir 100 mg daily, will continue to complete 5 days course Continue Dexamethasone IV for now, will transition to po for 10 days Received Azithromycin in the ER ferritin normal, ESR back to normal from 28 to 19, CRP decreased from 2.67 to 1.07 , and LDH was hemolysis Continue Vit C, Zinc, MVI and Vit D Continue for self pronating as this will likely improve VQ mismatch Continue Doxycycline and ceftriaxone IV for now Bacteremia Blood cx positive for gram positive cocci - Coag negative staph not lugdunensis MRSA and staph PCR are negative Will continue Rocephin and Doxycycline for now repeat blood cx no growth Will consider to get an ECHO if not due to contamination HTN BP elevated starting on Amlodipine 2.5 mg, then increased to 5mg Will resume HCTZ 25mg in am Continue Monitor BP Hypokalemia Possible related to diuretic Continue monitor BMP DVT px on lovenox subq CODE STATUS FULL CODE Admission and Anticipated Discharge Date Admission Date: May 18, 2020 Subjective Pt was seen and examined Sitting in bed with no distress Pt said that her breathing continue to improve She said that her cough improves She is only on 1 Liter NC today Pt is very anxious today because she has been trying to contact her but unable to get him currently in the ER Denies any chest pain, palpitation, dizziness and fever Physical Exam Physical Exam: General- No acute distress Head- atraumatic Eyes- PERRL, EOMI, ENT- oropharynx clear Neck- supple, no JVD Lungs- +mild wheezing Heart- regular rhythm; no murmur Abdomen- normal bowel sounds, soft, nontender Extremities- no calf tenderness Neuro- alert, oriented x 3; PERRL, EOMI; no facial palsy; no dysarthria Skin- warm & dry Results & Data Results & Data ([facility]) Vital Signs (Past 12 Hours) Vital Signs Temp Pulse Pulse Resp BP Pulse Ox 05/20/20 14:51 71 05/20/20 12:30 36.4 C L 73 18 139/72 96 08/28/20 09:20 36.4 C L 75 18 149/87 H 96 05/20/20 07:00 54 L 05/20/20 05:30 36.7 C 61 18 152/88 H 94
[2020-05-20] MEDS: AMLODIPINE BESYLATE 5 MG TAB PO SCH (19:55)
[2020-05-20] MEDS: REMDESIVIR 100mg: Days 2-5 IV SCH (19:55)
[2020-05-20] MEDS: cefTRIAXone SODIUM 2,000 MG in DEXTROSE 5% 50 ML IV SCH (19:56)
[2020-05-20] MEDS: ENOXAPARIN INJ 40 MG/0.4 ML SYR SQ SCH (20:01)
[2020-05-20] MEDS: NSS 30mL Flush, Days 1-5 IV SCH (21:08)
[2020-05-21] MEDS: LEVOTHYROXINE SODIUM 25 MCG TABLET PO SCH (06:12)
[2020-05-21] MEDS: ZINC SULFATE 220 MG CAPSULE PO SCH (08:22)
[2020-05-21] MEDS: MULTIVITAMIN TAB PO SCH (08:22)
[2020-05-21] MEDS: ASCORBIC ACID 500 MG TAB PO SCH ×2 (08:22→20:16)
[2020-05-21] MEDS: dexAMETHasone 6 MG in SYRINGE 0 ML IV SCH (08:22)
[2020-05-21] MEDS: guaiFENesin 600 MG TABCR PO SCH ×2 (08:23→20:14)
[2020-05-21] MEDS: DOXYCYCLINE HYCLATE 100 MG CAP PO SCH ×2 (08:23→20:15)
[2020-05-21] MEDS: CHOLECALCIFEROL 1,000 UNITS 25 MCG TAB PO SCH (08:23)
[2020-05-21] MEDS: hydroCHLOROthiazide 25 MG TAB PO SCH (08:23)
[2020-05-21 08:36] LABS: Hematocrit (blood only) 47.1 % (37-47); Hemoglobin 15.3 g/dL (12.0-16.0); Mean Corpuscular Hemoglobin 26.7 pg (25-34); Mean Corpuscular Hgb Conc 32.5 g/dL (32-36); Mean Corpuscular Volume 82.3 fL (80-100); Mean Platelet Volume 9.8 fL (7.4-10.4); Platelet Count 245 K/uL (130-400); RDW Coefficient of Variation 16.7 % (11.5-14.5); RDW Standard Deviation 50.1 fL (36.4-46.3); Red Blood Count 5.72 M/uL (4.2-5.4); White Blood Count 9.23 K/uL (4.8-10.8)
[2020-05-21 08:42] LABS: Creatinine Clr Calc Pharmacy 102.1 ml/min; Est GFR (African American) 90.9; Est GFR (Non-African American) 78.4
[2020-05-21 08:50] LABS: Albumin Globulin Ratio 0.7 (0.9-2); Albumin Level 2.9 gm/dl (3.4-5.0); BUN Creatinine Ratio 20.9 (10-20); Bilirubin,Total 0.4 mg/dl (0.2-1); Calcium 8.3 mg/dl (8.5-10.1); Globulin 4.2 gm/dl (2.5-4.0); Potassium 3.4 mmol/L (3.5-5.1); Total Protein 7.1 gm/dl (6.4-8.2)
[2020-05-21] MEDS ORDERED: HydrALAZINE HCL 20 MG/ML VIAL IV ONE (13:23)
[2020-05-21] MEDS ORDERED: AMLODIPINE BESYLATE 5 MG TAB PO SCH (13:30)
[2020-05-21] MEDS ORDERED: HydrALAZINE HCL 20 MG/ML VIAL IV PRN (17:27)
--- NOTE | 2020-05-21 17:31 | Hospitalist Progress Note ---
Date of Service May 21, 2020 Assessment & Plan (1) COVID-19: (2) Acute hypoxemic respiratory failure due to COVID-19: Pneumonia Present on admission with worsening SOB tested positive for COVID-19 on Saturday COVID 19 positive CXR showed mild left lower lung opacity Pulmonology on board Remdesivir 100 mg daily, will continue to complete 5 days course on day #4 today Continue Dexamethasone IV for now, will transition to po for 10 days Received Azithromycin in the ER ferritin normal, ESR back to normal from 28 to 19, CRP decreased from 2.67 to 1.07 , and LDH was hemolysis Consent signed for convalescent plasma, but due to shortage has not been deliver Since patient improved and saturated on RA, Will cancel the convalescent plasma Continue Vit C, Zinc, MVI and Vit D Continue for self pronating as this will likely improve VQ mismatch Continue Doxycycline and ceftriaxone IV for now saturated well on RA Clinically improved Bacteremia Blood cx positive for gram positive cocci - Coag negative staph not lugdunensis possible contamination MRSA and staph PCR are negative continue Rocephin and Doxycycline for now repeat blood cx no growth Stable HTN BP elevated Amlodipine increased to 5mg daily Continue HCTZ 25mg Hydralazine IV prn adding Continue Monitor BP Hypokalemia Possible related to diuretic Potassium 3.4 today K replaced Continue monitor BMP DVT px on lovenox subq CODE STATUS FULL CODE Disposition Will discharge home tomorrow Admission and Anticipated Discharge Date Admission Date: May 18, 2020 Subjective Pt was seen and examined Lying in bed with no distress Pt said that she feels much better She said that her SOB and cough improved She is saturated well on RA Denies any chest pain, palpitation and fever Physical Exam Physical Exam: General- No acute distress Head- atraumatic Eyes- PERRL, EOMI, ENT- oropharynx clear Neck- supple, no JVD Lungs- +mild wheezing Heart- regular rhythm; no murmur Abdomen- normal bowel sounds, soft, nontender Extremities- no calf tenderness Neuro- alert, oriented x 3; PERRL, EOMI; no facial palsy; no dysarthria Skin- warm & dry Results & Data Results & Data ([facility]) Vital Signs (Past 12 Hours) Vital Signs Temp Pulse Pulse Resp BP Pulse Ox 05/21/20 17:00 36.7 C 66 18 178/99 H 95 05/21/20 12:25 36.4 C L 66 18 177/84 H 93 05/21/20 08:20 36.6 C 60 18 166/89 H 92 05/21/20 07:00 72
[2020-05-21] MEDS ORDERED: POTASSIUM CHLORIDE 20 MEQ TABCR PO STA (17:37)
[2020-05-21] MEDS: cefTRIAXone SODIUM 2,000 MG in DEXTROSE 5% 50 ML IV SCH (20:12)
[2020-05-21] MEDS: AMLODIPINE BESYLATE 5 MG TAB PO SCH (20:15)
[2020-05-21] MEDS: ENOXAPARIN INJ 40 MG/0.4 ML SYR SQ SCH (20:16)
[2020-05-21] MEDS: REMDESIVIR 100mg: Days 2-5 IV SCH (21:11)
[2020-05-21] MEDS: NSS 30mL Flush, Days 1-5 IV SCH (22:22)
[2020-05-22] MEDS: LEVOTHYROXINE SODIUM 25 MCG TABLET PO SCH (06:06)
[2020-05-22] MEDS: guaiFENesin 600 MG TABCR PO SCH (08:17)
[2020-05-22] MEDS: DOXYCYCLINE HYCLATE 100 MG CAP PO SCH (08:17)
[2020-05-22] MEDS: CHOLECALCIFEROL 1,000 UNITS 25 MCG TAB PO SCH (08:19)
[2020-05-22] MEDS: ASCORBIC ACID 500 MG TAB PO SCH (08:19)
[2020-05-22] MEDS: ZINC SULFATE 220 MG CAPSULE PO SCH (08:19)
[2020-05-22] MEDS: MULTIVITAMIN TAB PO SCH (08:19)
[2020-05-22] MEDS: hydroCHLOROthiazide 25 MG TAB PO SCH (08:20)
[2020-05-22 08:36] LABS: Albumin Level 2.8 gm/dl (3.4-5.0); BUN Creatinine Ratio 22.3 (10-20); C Reactive Protein 0.29 mg/dl (0-0.29); Calcium 8.6 mg/dl (8.5-10.1); Creatinine Clr Calc Pharmacy 103.3 ml/min; Est GFR (African American) 92.2; Est GFR (Non-African American) 79.6; Potassium 3.2 mmol/L (3.5-5.1)
[2020-05-22 08:39] LABS: Albumin Globulin Ratio 0.7 (0.9-2); Bilirubin,Total 0.4 mg/dl (0.2-1); Globulin 3.9 gm/dl (2.5-4.0); Total Protein 6.7 gm/dl (6.4-8.2)
[2020-05-22 08:45] LABS: D Dimer 1260 ug/L FEU (0-500)
[2020-05-22] MEDS ORDERED: dexAMETHasone 4 MG TAB PO SCH (09:00)
[2020-05-22] MEDS ORDERED: POTASSIUM CHLORIDE 20 MEQ TABCR PO STA (12:20)
--- NOTE | 2020-05-22 16:07 | Hospitalist Progress Note ---
Date of Service May 22, 2020 Assessment & Plan (1) COVID-19: (2) Acute hypoxemic respiratory failure due to COVID-19: Pneumonia Present on admission with worsening SOB tested positive for COVID-19 on Saturday COVID 19 positive CXR showed mild left lower lung opacity Pulmonology on board Completed 5 days course of Remdesivir Dexamethasone IV was transition to po to complete 10 days Received Azithromycin in the ER ferritin normal, ESR back to normal from 28 to 19, CRP decreased from 2.67 to 1.07 , and LDH was hemolysis Consent signed for convalescent plasma, but due to shortage has not been delivered yet Since patient improved and saturated on RA, Will cancel the convalescent plasma Continue Vit C, Zinc, MVI and Vit D Continue for self pronating as this will likely improve VQ mismatch On Doxycycline and ceftriaxone IV for now, will continue doxycycline to complete 7 days course saturated well on RA Clinically improved Bacteremia Blood cx positive for gram positive cocci - Coag negative staph not lugdunensis possible contamination MRSA and staph PCR are negative continue Rocephin and Doxycycline for now repeat blood cx no growth Stable Elevated D-Dimer Mostly due to the positive COVID-19 D-dimer 1260 Asymptomatic Case discussed with hematology Dr. Zhang about anticoagulant on COVID [address] Zhang recommended to discharge on Eliquis 2.5 mg BID for 1 months due to increase risk of clot and stroke on COVID 19 patients Pt denies any GI bleeding or abnormal bleeding Major side effects about Eliquis reviewed with patient such as abnormal bleeding (hematuria, intracranial hemorrhage ) HTN BP elevated Amlodipine increased to 5mg daily, will continue on discharge Continue HCTZ 25mg On Hydralazine IV prn during the hospital course Continue Monitor BP Hypokalemia Possible related to diuretic Hydrochlorothiazide Potassium 3.2 today K replaced Will discharge on K supplement Continue monitor BMP DVT px on lovenox subq Will discharge on Eliquis 2.5 mg BID for 1 month CODE STATUS FULL CODE Disposition Will discharge home today Admission and Anticipated Discharge Date Admission Date: May 18, 2020 Subjective Pt was seen and examined Sitting in chair with no distress Pt said that she feels much better She said that her breathing feels better She said that her cough significantly improves Denies any chest pain, palpitation, dizziness, fever and SOB Physical Exam Physical Exam: General- No acute distress Head- atraumatic Eyes- PERRL, EOMI, ENT- oropharynx clear Neck- supple, no JVD Lungs- CTA B/L Heart- regular rhythm; no murmur Abdomen- normal bowel sounds, soft, nontender Extremities- no calf tenderness Neuro- alert, oriented x 3; PERRL, EOMI; no facial palsy; no dysarthria Skin- warm & dry Results & Data Results & Data ([facility]) Vital Signs (Past 12 Hours) Vital Signs Temp Pulse Pulse Resp BP Pulse Ox 05/22/20 14:20 66 05/22/20 11:30 36.4 C L 58 L 18 147/87 H 95 05/22/20 08:15 36.4 C L 64 18 175/99 H 05/22/20 07:00 88
[2020-05-22] MEDS: REMDESIVIR 100mg: Days 2-5 IV SCH (16:08)
[2020-05-22] MEDS ORDERED: APIXABAN 2.5 MG TAB PO SCH (17:15)
[2020-05-22] MEDS: NSS 30mL Flush, Days 1-5 IV SCH (17:52)
--- NOTE | 2020-05-23 09:16 | Discharge Summary ---
Date of Service May 22, 2020 Admission HPI Per Admitting Provider History obtained from patient and records. Medical history significant for hypertension, hyperlipidemia, restrictive lung disease as per records, SELENE on CPAP, uterine cancer status post surgery. Patient has not been well the last 2 weeks. Junky cough later noted to be blood-tinged as per patient. Shortness of breath, wheezing, and chills. No chest pain. Denies aspiration. noted to have a positive outpatient COVID 19 test. Family camping get together a few weeks ago. Patient seen at PCP's office today. Patient noted to be tachypneic, decreased breath sounds noted on left side with wheezing as per documentation. Patient sent by PCP to the ER for evaluation. O2 sats noted to be 80s on RA at the ER at some point. Outpatient rapid COVID-19 swab done at PCP's office found to be positive. Patient received Decadron at the ER. Medical History as above Surgical History : TAHBSO, appendectomy Family History : Leukemia, colon cancer, rheumatoid arthritis, diabetes, heart disease Personal/Social history : Non-smoker, no EtOH intake, disabled Admission Exam Per Admitting Provider GENERAL: Comfortable, morbidly obese, anxious, no respiratory distress SKIN: Normal color, warm HEENT: Bespectacled, [place] palpebral conjunctivae, no ptosis, dry buccal mucosa, nasal cannula in place NECK : Supple, short neck, no tenderness CHEST : Decreased breath sounds, occasional expiratory wheezes, no tenderness HEART : RRR, no obvious murmurs ABDOMEN: Some distention, nontender EXTREMITIES : Minimal LE swelling, no LE tenderness, no other conspicuous deformities noted NEUROLOGIC : Coherent, no facial asymmetry, no other gross focality Principal Diagnosis COVID-19 Acute hypoxemic respiratory failure due to COVID-19 Pneumonia Elevated D-Dimer Hypertension Hypokalemia Discharge Exam General- No acute distress Head- atraumatic Eyes- PERRL, EOMI, ENT- oropharynx clear Neck- supple, no JVD Lungs- CTA B/L Heart- regular rhythm; no murmur Abdomen- normal bowel sounds, soft, nontender Extremities- no calf tenderness Neuro- alert, oriented x 3; PERRL, EOMI; no facial palsy; no dysarthria Skin- warm & dry Discharge Data Allergies Allergy/AdvReac Type Severity Reaction Status Date / Time No Known Allergies Allergy Verified 05/18/20 20:55 Consultations 05/18/20 19:06 ED Decision to Admit Stat 05/18/20 21:32 Consult Pulmonology Routine Hospital Course (1) COVID-19: (2) Acute hypoxemic respiratory failure due to COVID-19: Pneumonia Present on admission with worsening SOB tested positive for COVID-19 on Saturday COVID 19 positive CXR showed mild left lower lung opacity Pulmonology on board Completed 5 days course of Remdesivir Dexamethasone IV was transition to po to complete 10 days Received Azithromycin in the ER ferritin normal, ESR back to normal from 28 to 19, CRP decreased from 2.67 to 1.07 , and LDH was hemolysis Consent signed for convalescent plasma, but due to shortage has not been delivered yet Since patient improved and saturated on RA, Will cancel the convalescent plasma Continue Vit C, Zinc, MVI and Vit D Continue for self pronating as this will likely improve VQ mismatch On Doxycycline and ceftriaxone IV for now, will continue doxycycline to complete 7 days course saturated well on RA Clinically improved Bacteremia Blood cx positive for gram positive cocci - Coag negative staph not lugdunensis possible contamination MRSA and staph PCR are negative continue Rocephin and Doxycycline for now repeat blood cx no growth Stable Elevated D-Dimer Mostly due to the positive COVID-19 D-dimer 1260 Asymptomatic Case discussed with hematology Dr. Zhang about anticoagulant on COVID [address] Zhang recommended to discharge on Eliquis 2.5 mg BID for 1 months due to increase risk of clot and stroke on COVID 19 patients Pt denies any GI bleeding or abnormal bleeding Major side effects about Eliquis reviewed with patient such as abnormal bleeding (hematuria, intracranial hemorrhage ) HTN BP elevated Amlodipine increased to 5mg daily, will continue on discharge Continue HCTZ 25mg On Hydralazine IV prn during the hospital course Continue Monitor BP Hypokalemia Possible related to diuretic Hydrochlorothiazide Potassium 3.2 today K replaced Will discharge on K supplement Continue monitor BMP DVT px on lovenox subq Will discharge on Eliquis 2.5 mg BID for 1 month CODE STATUS FULL CODE Disposition Will discharge home today Total Time Total Time Spent Total Time Spent (In Minutes): 35 minutes Total Time Includes: Examination of the Patient, Discharge Planning, Medication Reconciliation, Communication With Other Providers and Other Discharge Plan Discharge Items Patient Disposition: Home - Self-Care Reason For Visit: RESP FAILURE COVID PNX Discharge Diagnosis: COVID-19 Acute hypoxemic respiratory failure due to COVID-19 Pneumonia Elevated D-Dimer Hypertension Hypokalemia Activity: Resume your previous activity Non-emergency contact: Primary Care Provider Call non-emergency contact if: your temperature is above 101 Follow-up/Referrals: PCP,NO [Primary Care Provider] - Diet: Heart Healthy Addtl Attending Provider Instructions: Follow up with your primary care provider within 1 week (Please call for the appointment) Complete course of antibiotic with doxycycline Complete the course of dexamethasone Continue monitor your blood pressure and bring your blood pressure log at your next appointment with your physician Starting on Eliquis for stroke and blood clot prophylaxis due to due to the risk of COVID 9 for 1 months Monitor for abnormal bleeding (such as blood in your stool and urine) while on elequis Seek medical attention if you develop any abnormal bleeding Check BMP in 1 week to monitor your electrolytes (Low potassium ) Fall precaution Continue practice social distance and wear face mask Please quarantine yourself for at least 14 days Medication Instructions: Eliquis Your condition is typically treated with an anticoagulant. Anticoagulants will thin your blood to help prevent new clots. You should take her medication exactly as directed. Never skip a dose. Never take a double dose. If you miss a dose, take it as soon as you remember. Avoid NSAIDs (Motrin, Aleve, Naproxen, Ibuprofen, Advil, Meloxicam,..) due to risks of bleeding Call your Primary Care doctor if you experience any of the following: Swelling or Pain in your leg Sudden, continuous pain deep in a muscle Pain that worsens when you are active or when you stand still for a long time Chest Pain Sudden Shortness of Breath Rapid or pounding heart beat Fainting Dizziness Cough with blood or bloody sputum Sweating more than normal Bruises Heavy or uncontrolled bleeding Blood in your urine, stool or vomit Black or tarry stools Coronavirus disease 2019 (COVID-19) is a virus that causes a respiratory illness. It is caused by a coronavirus called 2019 novel coronavirus (2019- nCoV). There are many types of coronavirus. Coronaviruses are a very common cause of bronchitis. They may sometimes cause lung infection(pneumonia). Symptoms can range from mild to severe respiratory illness. These viruses are also foundin some animals. COVID-19 was first found in people in [facility], in late 2019. In 2020, several cases of COVID-19 have been confirmed in the [place] Public health officials are working to find the source. How the virus spreads is not yet fully known. It may be spread through droplets of fluid that a person coughs or sneezes into the air. It may be spread if you touch a surface with virus on it, such as a handle or object, and then touch your mouth. What are the symptoms of COVID-19? Some people have no symptoms or mild symptoms. Symptoms may appear 2 to 14 days after contact with the virus. Symptoms can include: Fever Coughing Trouble breathing What are possible complications from COVID-19? In many cases, this virus can cause infection (pneumonia) in both lungs. In some cases, this can cause . How is COVID-19 diagnosed? Your healthcare provider will ask about your symptoms. He or she will also ask about your recent travel and contact with sick people. Testing for the virus is only done through the CDC. If yourhealthcare provider thinks you may have COVID- 19, he or she will work with your local health department and the CDC on t esting. Follow all instructions from your healthcare provider. COVID-19 is diagnosed by: Nasal and throat swab. A cotton-tipped swab is wiped inside your nose or throat. This is done to check for viruses in your nasal mucus. Sputum culture. A small sample of mucus coughed from your lungs (sputum) is collected if you have a cough. It is checked for the virus. How is COVID-19 treated? There is currently no medicine to treat the virus. Treatment is done to help your body while it fights the virus. This is known as supportive care. Supportive care may include: Pain medicine. These include acetaminophen and ibuprofen. They are used to help ease pain and reduce fever. Bed rest. This helps your body fight the illness. For severe illness, you may need to stay in the hospital. Care during severe illness may include: IV (intravenous) fluids.These are given through a vein to help keep your body hydrated. Oxygen. Supplemental oxygen or ventilation with a breathing machine (ventilator) may be given. This is done to keep enough oxygen in your body. Are you at risk for COVID-19? If youve been to a place where people have been sick with this virus, you are at risk for infection. You are at risk if you: Recently traveled to an affected area Had contact with a sick person who recently traveled to this area Had contact with a person who was diagnosed with COVID-19 How can COVID-19 be prevented? There is no vaccine yet. The best prevention is to not have contact with the virus. The CDC advises that people should not travel to areas where there are COVID-19 outbreaks right now for any reason that is not urgent. To help prevent spreading the infection, wash your hands often, or use an alcohol-basedhand hot shot. If you are in an area with COVID-19: Wash your hands often. Or use an alcohol-based hand hot shot often. Only touch your eyes, nose, or mouth with clean hands. Dont have contact with people who are sick. Follow local instructions about being in public. For example, you may be told to not use public transport for a period of time. Stay away from markets that have live or animals. Wash your hands after touching any animals. Don't touch animals that may be sick. Dont share eating or drinking tools with sick people. Dont kiss someone who is sick. Clean surfaces often with disinfectant. If you were in an area with COVID-19 in the last 14 days: Call your healthcare provider. He or she can talk with local health staff to see what action may be needed. Follow all instructions from your provider. Take your temperature every morning and evening for at least 14 days. This is to check for fever. Keep a record of the readings. Keep watch for symptoms of the virus. Tell your provider right away if you have symptoms. If you were in an area with COVID-19 and have a fever or other symptoms: Dont panic. Keep in mind that other illnesses can cause similar symptoms. Stay away from work, school, and public places. Limit physical contact with family members. Don't kiss anyone or share eating or drinking utensils. Clean surfaces you touch with disinfectant. This is to help prevent the virus from spreading. Call your healthcare provider. Explain that you have been exposed to COVID-19 and have symptoms. Do this before going to any hospital. Wait for instructions. Keep in mind that healthcare staff may wear protective equipment such as masks, gowns, gloves, and eye protection. You may be put in a separate room. This is to prevent the possible virus from spreading. Tell the healthcare staff about recent travel. This includes local travel on public transport. Staff may need to find other people you have been in contact with. Follow all instructions the healthcare staff give you. If you have been diagnosed with COVID-19 Follow all instructions from your healthcare provider. Dont leave your home, except to get medical care. Call your healthcare providers office before going. They can prepare and give you instructions. This will help prevent the virus from spreading. Dont go to work, school, or public areas. Dont use public transport or taxis. Stay away from other people in your home. Have them wear face masks around you. Dont share household items or food. Wear a face mask if you can. This includes at home or in a medical facility. Cover your face with a tissue when you cough or sneeze. Throw the tissue away. Wash your hands. Wash your hands often. Caregivers should: Follow all instructions from healthcare staff. Wear a face mask and protective clothing as advised. Wash hands often. Keep track of the sick persons symptoms. Clean surfaces, fabrics, and laundry thoroughly. Keep other people away from the sick person. When to call your healthcare provider Call your healthcare provider: If youve recently traveled and have symptoms If you have been diagnosed with COVID-19 and your symptoms are worse To learn more To find out more about COVID-19, visit the CDC website at www.cdc.gov/coronavirus/2019-ncov/index.html. 3184-[address] [employer] [place], [place] [address]. All rights reserved. This information is not intended as a substitute for professional medical care. Always follow your healthcare professional's instructions. This information has been adapted from [employer] Pending Studies at Discharge: No Stand-Alone Forms: My Tag & See, Smoking Cessation Medications and DC Order Prescriptions: New multivitamin [Daily-Tres] Tablet 1 tab PO QAM 30 Days Qty: 30 RF: 0 amlodipine [Norvasc] 5 mg Tablet 5 mg PO 1999 30 Days Qty: 30 RF: 0 ascorbic acid (vitamin C) [Vitamin C] 500 mg Tablet 500 mg PO BID 30 Days Qty: 60 RF: 0 dexamethasone 4 mg Tablet 6 mg PO DAILY 5 Days Qty: 8 RF: 0 zinc sulfate [Orazinc] 220 (50) mg Capsule 220 mg PO QAM 30 Days Qty: 30 RF: 0 Eliquis 2.5 mg Tablet 2.5 mg PO BID 30 Days Qty: 60 RF: 0 doxycycline hyclate 100 mg tablet 100 mg PO BID 2 Days Qty: 4 RF: 0 cholecalciferol (vitamin D3) [Vitamin D3] 25 mcg (1,000 unit) tablet 1,000 unit PO DAILY Qty: 30 RF: 0 potassium chloride 10 mEq tablet extended release 10 meq PO DAILY Qty: 30 RF: 0 Continued albuterol sulfate 90 mcg/actuation HFA aerosol inhaler 2 puff INHALATION QID RF: 0 levothyroxine 25 mcg tablet 25 mcg PO QAM RF: 0 hydrochlorothiazide 25 mg tablet 25 mg PO DAILY RF: 0 Flovent HFA 110 mcg/actuation HFA aerosol inhaler 2 puff INHALATION BID RF: 0 albuterol sulfate 2.5 mg /3 mL (0.083 %) Solution For Nebulization 2.5 mg INHALATION Q4H PRN (Reason: Shortness Of Breath Or Wheezing) RF: 0 Discharge Orders: Discharge Order (Routine); Ordered 05/22/20 Ordered By: Silvestre Hills Admission Data Admit Date/Time: 05/18/20 20:24 Attending Provider: Silvestre Hills Admit Provider: Celso Moreno Primary Care Provider: PCP,NO Other Providers: Celso Moreno ; Ruiz Elizondo ; Naina Whyte Other Interventions: Discharge Summary Assessment (RN) Last Done: 05/22/20 17:52
== END 2020-05-22 18:30 | disposition home or self-care (01) | DRG 177 ==
LOC: ED 16:41 → SUATTDRO 20:24 → 2W 20:24

== ENCOUNTER 2020-05-27 16:47 | Inpatient (IN) ==
[2020-05-27] MEDS ORDERED: ACETAMINOPHEN 500 MG TAB PO STA (18:07)
--- NOTE | 2020-05-27 18:23 | Emergency Department Note ---
Impression & Plan Breathlessness, Chest pain, Elevated lipase ED Provider Note Provider: Chago Sullivan MD DATE OF SERVICE: 05/27/2020 CHIEF COMPLAINT: Chest pain, shortness of breath HISTORY OF PRESENT ILLNESS: Patient is a 60-year-old female with history of hyperlipidemia, hypertension, restrictive lung disease, recently hospitalized this past weekend for coronavirus 19 infection presenting here today complaining of onset this morning when she woke up of significant left-sided chest pain with radiation to her back and left upper arm as well as worsening shortness of breath. Patient denies nausea or abdominal pain. Denies trauma otherwise. Patient states compliance her home Eliquis. Patient denies significant headache. Denies fever. Patient states her breathing got significantly worse just had again today. Patient states her who is ill at home has been doing quite well compared to her. Patient states she has been able to eat. Has not used significant pain medicines today as she did not want it to interact with her medications particular her blood thinner. Denies a history of similar pain. Patient does states that her left arm seems to feel a bit more difficult to work and that is been going on since she is been home. States the chest pain did moderate a little bit this afternoon but persistent call the nurses line referred here for further evaluation. REVIEW OF SYSTEMS: A total of 10 review of systems was obtained and negative except as stated above in the HPI. PAST MEDICAL HISTORY: As noted above MEDICATIONS: Reviewed home medication list. SOCIAL HISTORY: Non-smoker, , lives at home PHYSICAL EXAM: GENERAL: alert and oriented sitting on stretcher with some increased work of breathing. Head: normocephalic and atraumatic EYES: No injection, discharge or icterus NECK: Trachea midline. Supple. ENT: Mucous membranes pink and moist. LUNGS: Airway patent. With some increased work of breathing. HEART: Regular rate and rhythm. Some slight left upper chest wall discomfort. ABDOMEN: Soft and non-tender, without guarding or rebound. SKIN: Acyanotic, warm, dry, without rashes EXTREMITIES: No significant lower extremity swelling. Both forearms are small area of contusion healing without significant tenderness. NEUROLOGICAL: No aphasia. No facial droop or slurred speech. Exam is generally weak in all extremities although states her left arm seems a bit weaker although this is hard to appreciate on exam. EK beats. Normal sinus rhythm. No PVC. No PAC. No acute ST segment elevations appreciated. Normal QTC and axis. CONTINUOUS CARDIAC MONITORING: was ordered and showed a heart rate of 68 bpm in normal sinus rhythm Patient's hypertension was referred to the hospitalist Patient's laboratory studies and imaging reviewed. Differential includes Infection, dehydration, metabolic abnormality, hypo/hyperglycemia, electrolyte disturbance, anemia, hypoxia, cardiac sources, intracerebral event, toxicologic, neurologic, as well as other pathologies. IMPRESSION/MEDICAL DECISION MAKING: Patient presents here complaining of chest pain starting last night and more recently some shortness of breath. Patient seems in some increased work of breathing on exam although not significantly hypoxic. Did want to exclude PE or other intrathoracic pathology and thus a CT scan was ordered here. Does complain of some slight left upper extremity weakness over the last several days although no facial droop or other focal deficits and lower suspicion for stroke given her anticoagulation status to complete a CT of her head to exclude intracranial bleed. This was likely negative. Basic labs were obtained as well as an EKG and a troponin; there was some delay as difficulty obtaining IV access required IV team. EKG without significant changes. Troponin is negative and seems unlikely to be acute ACS. D-dimer is elevated and given her recent onset of shortness of breath and coronavirus infection did complete CT exclude acute intrathoracic pathology including PE. Some limited study but no central PE identified with bilateral groundglass opacities consistent with her coronavirus infection. Lipase was significantly elevated at just shy of 1700 per procalcitonin sent tactile. Leukocytosis 15s of unclear etiology with this is reactive possibly a component of onset of pancreatitis is possible. The negative pro calcitonin and her lack of significant fever symptoms at this time is sore so we will hold off on antibiotics. Patient is a door significant nausea vomiting or abdominal symptoms at this time otherwise. Unsure if the elevated lipase does correlate truly with pancreatitis or not. Patient is still with discomfort and was given some pain medication after reassessment. Patient is currently being maintained in isolation and treated as COVID positive given her recent test although did not empirically retest her again in the emergency department. She did ask me to update her who she said was waiting in the car in the parking lot and I tried his phone number several times without success. Was contreras ater advised by nursing that he was actually in the waiting room and immediately proceeded to find him there. He was in the waiting room with a mask and was updated on the patient. Advised that he should be returning home at this time and isolating. Charge nurse also aware. DIAGNOSIS: Chest pain, shortness of breath, coronavirus 19 infection, elevated lipase DISPOSITION: Hospitalist will evaluate Patient was agreeable with this plan. 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 Beliefs That Will Affect Care: None Current Living Situation: Spouse Feels Safe at Home: Yes Allergies Allergies Allergy/AdvReac Type Severity Reaction Status Date / Time No Known Allergies Allergy Verified 05/27/20 18:36 Home Meds Home Medications Medication Instructions Recorded Confirmed Flovent HFA 2 puff INHALATION BID 05/18/20 05/27/20 albuterol sulfate 2 puff INHALATION QID PRN 05/18/20 05/27/20 hydrochlorothiazide 25 mg PO QAM 05/18/20 05/27/20 levothyroxine 25 mcg PO QAM 05/18/20 05/27/20 amlodipine [Norvasc] 5 mg PO DAILY@199905/27/20 05/27/20 cholecalciferol (vitamin D3) 1,000 unit PO QAM 05/27/20 05/27/20 [Vitamin D3] potassium chloride 10 meq PO QAM 05/27/20 05/27/20 Previous Rx's Medication Instructions Recorded apixaban [Eliquis] 2.5 mg PO BID 30 Days #60 tab 05/22/20 ascorbic acid (vitamin C) [Vitamin 500 mg PO BID 30 Days #60 tab 05/22/20 C] multivitamin [Daily-Tres] 1 tab PO QAM 30 Days #30 tab 05/22/20 zinc sulfate [Orazinc] 220 mg PO QAM 30 Days #30 cap 05/22/20 Results & Data (ED) Vital Signs Vital Signs - 24 hr 05/27/20 16:54 05/27/20 18:04 05/27/20 18:08 Pulse Rate 81 60 59 L Pulse Rate [Right Finger] Pulse Rate from SpO2 Sensor 60 59 L Pulse Rhythm Regular Pulse Strength Normal Respiratory Rate 26 H 24 20 Respiratory Effort / Characteristics Labored Respiratory Depth Shallow Blood Pressure 189/112 H 164/89 H Blood Pressure [Right Arm] Blood Pressure Mean 137 125 Blood Pressure Mean [Right Arm] Blood Pressure Position Sitting Blood Pressure Position [Right Arm] Pulse Oximetry 92 94 94 Oxygen Delivery Method Room Air Sepsis Recent Fever Within 48 Hours No Sepsis New/Unexplained Change in Mental Status N/A Sepsis Action Taken by Nursing No Action Required 05/27/20 18:10 05/27/20 18:20 05/27/20 18:30 Pulse Rate 56 L 53 L 62 Pulse Rate [Right Finger] Pulse Rate from SpO2 Sensor 57 L 54 L 61 Pulse Rhythm Pulse Strength Respiratory Rate 19 21 15 Respiratory Effort / Characteristics Respiratory Depth Blood Pressure Blood Pressure [Right Arm] Blood Pressure Mean Blood Pressure Mean [Right Arm] Blood Pressure Position Blood Pressure Position [Right Arm] Pulse Oximetry 92 94 91 Oxygen Delivery Method Sepsis Recent Fever Within 48 Hours Sepsis New/Unexplained Change in Mental Status Sepsis Action Taken by Nursing 05/27/20 18:40 05/27/20 18:50 05/27/20 19:00 Pulse Rate 52 L 53 L 56 L Pulse Rate [Right Finger] 53 L Pulse Rate from SpO2 Sensor 52 L 52 L 55 L Pulse Rhythm Pulse Strength Respiratory Rate 19 22 17 Respiratory Effort / Characteristics Respiratory Depth Normal Blood Pressure Blood Pressure [Right Arm] 160/85 H Blood Pressure Mean Blood Pressure Mean [Right Arm] 110 Blood Pressure Position Blood Pressure Position [Right Arm] Lying Pulse Oximetry 94 94 92 Oxygen Delivery Method Sepsis Recent Fever Within 48 Hours Sepsis New/Unexplained Change in Mental Status Sepsis Action Taken by Nursing 05/27/20 20:00 05/27/20 20:48 05/27/20 22:00 Pulse Rate Pulse Rate [Right Finger] 52 L 50 L Pulse Rate from SpO2 Sensor Pulse Rhythm Pulse Strength Respiratory Rate 24 20 Respiratory Effort / Characteristics Respiratory Depth Normal Blood Pressure Blood Pressure [Right Arm] 183/96 H 167/104 H Blood Pressure Mean Blood Pressure Mean [Right Arm] 125 125 Blood Pressure Position Blood Pressure Position [Right Arm] Lying Pulse Oximetry 96 96 96 Oxygen Delivery Method Room Air Room Air Room Air Sepsis Recent Fever Within 48 Hours Sepsis New/Unexplained Change in Mental Status Sepsis Action Taken by Nursing 05/27/20 23:18 Pulse Rate 52 L Pulse Rate [Right Finger] Pulse Rate from SpO2 Sensor Pulse Rhythm Pulse Strength Respiratory Rate 20 Respiratory Effort / Characteristics Respiratory Depth Blood Pressure 149/90 H Blood Pressure [Right Arm] Blood Pressure Mean Blood Pressure Mean [Right Arm] Blood Pressure Position Blood Pressure Position [Right Arm] Pulse Oximetry 96 Oxygen Delivery Method Room Air Sepsis Recent Fever Within 48 Hours Sepsis New/Unexplained Change in Mental Status Sepsis Action Taken by Nursing Laboratory Data Result diagrams: 05/27/20 20:00 05/27/20 20:00 Lab Results 05/27/20 05/27/20 05/27/20 Range/Units 20:00 20:00 20:00 WBC 15.06 H (4.8-10.8) K/uL RBC 5.81 H (4.2-5.4) M/uL Hgb 15.5 (12.0-16.0) g/dL Hct 47.4 H (37-47) % MCV 81.6 (80-100) fL MCH 26.7 (25-34) pg MCHC 32.7 (32-36) g/dL RDW Std Deviation 50.9 H (36.4-46.3) fL RDW Coeff of Lori 17.0 H (11.5-14.5) % Plt Count 307 (130-400) K/uL MPV 10.0 (7.4-10.4) fL Immature Gran % (Auto) 0.9 % Neut % (Auto) 77.7 % Lymph % (Auto) 12.5 % Mcpherson % (Auto) 8.8 % Eos % (Auto) 0.0 % Baso % (Auto) 0.1 % Neut # (Auto) 11.71 H (1.4-6.5) K/uL Lymph # (Auto) 1.89 (1.2-3.4) K/uL Mcpherson # (Auto) 1.32 H (0.11-0.59) K/uL Eos # (Auto) 0.00 (0-0.5) K/uL Baso # (Auto) 0.01 (0-0.2) K/uL Immature Gran # (Auto) 0.13 H (0.00-0.02) K/uL PT 10.6 (9.0-12.0) Seconds INR 1.0 (0.9-1.1) APTT 23.6 (21.0-31.0) Seconds PTT Ratio 0.8 D-Dimer 510 H* (0-500) ug/L FEU Sodium 141 (136-145) mmol/L Potassium 4.1 (3.5-5.1) mmol/L Chloride 104 (98-107) mmol/L Carbon Dioxide 30 (21-32) mmol/L Anion Gap 7.0 (3-11) BUN 27 H (7-18) mg/dl Creatinine 1.19 (0.6-1.2) mg/dl Est Cr Clr Drug Dosing 69.4 ml/min Est GFR ( Amer) 57.1 Est GFR (Non-Af Amer) 49.2 BUN/Creatinine Ratio 22.9 H (10-20) Glucose 114 H (70-99) mg/dl Calcium 9.2 (8.5-10.1) mg/dl Total Bilirubin 0.4 (0.2-1) mg/dl AST 20 (15-37) U/L ALT 39 (12-78) U/L Alkaline Phosphatase 61 (45-117) U/L Troponin I < 0.015 (0-0.045) ng/ml Total Protein 6.7 (6.4-8.2) gm/dl Albumin 2.9 L (3.4-5.0) gm/dl Globulin 3.8 (2.5-4.0) gm/dl Albumin/Globulin Ratio 0.8 L (0.9-2) Lipase 1697 H (73-393) U/L Procalcitonin (0-0.5) ng/ml 05/27/20 Range/Units 20:10 WBC (4.8-10.8) K/uL RBC (4.2-5.4) M/uL Hgb (12.0-16.0) g/dL Hct (37-47) % MCV (80-100) fL MCH (25-34) pg MCHC (32-36) g/dL RDW Std Deviation (36.4-46.3) fL RDW Coeff of Lori (11.5-14.5) % Plt Count (130-400) K/uL MPV (7.4-10.4) fL Immature Gran % (Auto) % Neut % (Auto) % Lymph % (Auto) % Mcpherson % (Auto) % Eos % (Auto) % Baso % (Auto) % Neut # (Auto) (1.4-6.5) K/uL Lymph # (Auto) (1.2-3.4) K/uL Mcpherson # (Auto) (0.11-0.59) K/uL Eos # (Auto) (0-0.5) K/uL Baso # (Auto) (0-0.2) K/uL Immature Gran # (Auto) (0.00-0.02) K/uL PT (9.0-12.0) Seconds INR (0.9-1.1) APTT (21.0-31.0) Seconds PTT Ratio D-Dimer (0-500) ug/L FEU Sodium (136-145) mmol/L Potassium (3.5-5.1) mmol/L Chloride (98-107) mmol/L Carbon Dioxide (21-32) mmol/L Anion Gap (3-11) BUN (7-18) mg/dl Creatinine (0.6-1.2) mg/dl Est Cr Clr Drug Dosing ml/min Est GFR ( Amer) Est GFR (Non-Af Amer) BUN/Creatinine Ratio (10-20) Glucose (70-99) mg/dl Calcium (8.5-10.1) mg/dl Total Bilirubin (0.2-1) mg/dl AST (15-37) U/L ALT (12-78) U/L Alkaline Phosphatase (45-117) U/L Troponin I (0-0.045) ng/ml Total Protein (6.4-8.2) gm/dl Albumin (3.4-5.0) gm/dl Globulin (2.5-4.0) gm/dl Albumin/Globulin Ratio (0.9-2) Lipase (73-393) U/L Procalcitonin < 0.05 (0-0.5) ng/ml Administered Medications Discontinued Medications Acetaminophen (Acetaminophen 500 Mg Tab) 1,000 mg PO NOW STA Stop: 05/27/20 18:08 Last Admin: 05/27/20 19:30 Dose: 1,000 mg Documented by: [id number] Fentanyl Citrate (Fentanyl Citrate 100 Mcg/2 Ml Vial) 25 mcg IV NOW STA Stop: 05/27/20 21:09 Last Admin: 05/27/20 21:37 Dose: 25 mcg Documented by: [id number] Discharge Plan Visit Data Chief Complaint: Chest Pain Stated Complaint: PAIN BETWEEN SHOULDER BLADES, CHEST PAIN ED Provider: Chago Sullivan Discharge Problem: Breathlessness, Chest pain, Elevated lipase Patient Disposition: Being Evaluated by Hospitalist Condition: Fair Discharge Instructions Interventions: ED Discharge Assessment Last Done: 05/27/20 23:18 Forms Stand Alone Forms: [facility] [place] Prescriptions Prescriptions: No Action albuterol sulfate 90 mcg/actuation HFA aerosol inhaler 2 puff INHALATION QID PRN (Reason: Shortness Of Breath Or Wheezing) RF: 0 levothyroxine 25 mcg tablet 25 mcg PO QAM RF: 0 hydrochlorothiazide 25 mg tablet 25 mg PO QAM RF: 0 Flovent HFA 110 mcg/actuation HFA aerosol inhaler 2 puff INHALATION BID RF: 0 multivitamin [Daily-Tres] Tablet 1 tab PO QAM 30 Days Qty: 30 RF: 0 ascorbic acid (vitamin C) [Vitamin C] 500 mg Tablet 500 mg PO BID 30 Days Qty: 60 RF: 0 zinc sulfate [Orazinc] 220 (50) mg Capsule 220 mg PO QAM 30 Days Qty: 30 RF: 0 Eliquis 2.5 mg Tablet 2.5 mg PO BID 30 Days Qty: 60 RF: 0 potassium chloride 10 mEq tablet extended release 10 meq PO QAM RF: 0 amlodipine [Norvasc] 5 mg tablet 5 mg PO DAILY@1999 RF: 0 cholecalciferol (vitamin D3) [Vitamin D3] 25 mcg (1,000 unit) tablet 1,000 unit PO QAM RF: 0 Referrals Referrals: Asuncion Huynh MD [Primary Care Provider] - Discharge Problem: Chest pain Qualifiers: Chest pain type: unspecified Qualified Code(s): R07.9 - Chest pain, unspecified
[2020-05-27 20:21] LABS: Basophils # (auto) 0.01 K/uL (0-0.2); Basophils % (auto) 0.1 %; Hematocrit (blood only) 47.4 % (37-47); Hemoglobin 15.5 g/dL (12.0-16.0); Immature Granulocytes # (auto) 0.13 K/uL (0.00-0.02); Immature Granulocytes % (auto) 0.9 %; Lymphocytes # (auto) 1.89 K/uL (1.2-3.4); Lymphocytes % (auto) 12.5 %; Mean Corpuscular Hemoglobin 26.7 pg (25-34); Mean Corpuscular Hgb Conc 32.7 g/dL (32-36); Mean Corpuscular Volume 81.6 fL (80-100); Monocytes # (auto) 1.32 K/uL (0.11-0.59); Monocytes % (auto) 8.8 %; Neutrophils # (auto) 11.71 K/uL (1.4-6.5); Neutrophils % (auto) 77.7 %; Platelet Count 307 K/uL (130-400); RDW Standard Deviation 50.9 fL (36.4-46.3); Red Blood Count 5.81 M/uL (4.2-5.4); White Blood Count 15.06 K/uL (4.8-10.8)
[2020-05-27 20:34] LABS: Partial Thromboplastin Ratio 0.8; Partial Thromboplastin Time 23.6 Seconds (21.0-31.0); Prothrombin Time 10.6 Seconds (9.0-12.0)
[2020-05-27 20:36] LABS: D Dimer 510 ug/L FEU (0-500)
[2020-05-27 20:37] LABS: Alanine Aminotransferase 39 U/L (12-78); Albumin Level 2.9 gm/dl (3.4-5.0); Aspartate Aminotransferase 20 U/L (15-37); BUN Creatinine Ratio 22.9 (10-20); Blood Urea Nitrogen 27 mg/dl (7-18); Calcium 9.2 mg/dl (8.5-10.1); Carbon Dioxide 30 mmol/L (21-32); Chloride 104 mmol/L (98-107); Creatinine Clr Calc Pharmacy 69.4 ml/min; Est GFR (African American) 57.1; Est GFR (Non-African American) 49.2; Glucose 114 mg/dl (70-99); Potassium 4.1 mmol/L (3.5-5.1); Sodium 141 mmol/L (136-145)
[2020-05-27 20:42] LABS: Albumin Globulin Ratio 0.8 (0.9-2); Alkaline Phosphatase 61 U/L (45-117); Bilirubin,Total 0.4 mg/dl (0.2-1); Globulin 3.8 gm/dl (2.5-4.0); Lipase 1697 U/L (73-393); Total Protein 6.7 gm/dl (6.4-8.2); Troponin I < 0.015 ng/ml (0-0.045)
--- NOTE | 2020-05-27 20:51 | CT Scan Report ---
CT head/brain wo con CLINICAL HISTORY: 60 years-old Female with weakness. Acute weakness TECHNIQUE: Multiple axial CT images of the head were obtained without contrast. A dose lowering tech nique was utilized adhering to the principles of ALARA. CT DOSE: 1770.38 mGy.cm COMPARISON: None. FINDINGS: No acute intracranial hemorrhage, midline shift, intracranial mass, hydrocephalus, territorial ischem ia or abnormal extra-axial collection. The calvarium is intact. Mastoid air cells are clear. Minimal polypoid mucosal thickening of the rig ht maxillary sinus. Soft tissues and orbits are unremarkable. IMPRESSION: No acute intracranial abnormality. ACT 112: Negative or not required by law. The above report was generated using voice recognition software. It may contain grammatical, syntax o r spelling errors. Electronically signed by: Elvis Muhammad M.D. 05/27/2020 8:50 PM
--- NOTE | 2020-05-27 20:57 | CT Scan Report ---
CT angio chest PE protocol HISTORY: 60 years-old Female with PE, SOB, +COVID, worsening , cp. Acute shortness of breath with c hest pain TECHNIQUE: Multiple CTA images of the chest were obtained after the intravenous administration of 116 ml Optiray 320. Coronal and sagittal MIPS were obtained from the axial data set and were submitted for review. All measurements were obtained according to NASCET criteria. A dose lowering technique w as utilized adhering to the principles of ALARA. COMPARISON: Chest radiograph 05/18/2020 FINDINGS: CTA: Moderate cardiomegaly. No pericardial effusion. No thoracic aortic aneurysm or dissection. Patency of the imaged great vessels. Suboptimal violation of the pulmonary artery secondary to respiratory abimael on artifact and contrast bolus timing. No central pulmonary emboli identified. CT CHEST: Unremarkable thyroid. No adenopathy. Mild bilateral groundglass opacities are most pronounced in the bilateral midlung distributions. No airspace consolidation, pleural effusion or pneumothorax. No susp icious pulmonary nodules or masses. Central airways are patent. Hepatomegaly with hepatic steatosis. Colonic diverticulosis. Soft tissues are unremarkable. Bones appear grossly intact. IMPRESSION: 1. Limited evaluation of the pulmonary arterial tree as above. No central pulmonary emboli identified . 2. Ill-defined bilateral groundglass opacities may be secondary to atelectasis versus atypical pneumo del. 3. No pleural effusion or adenopathy. 4. Moderate cardiomegaly. 5. Hepatic steatosis. ACT 112: Negative or not required by law. The above report was generated using voice recognition software. It may contain grammatical, syntax o r spelling errors. Electronically signed by: Elvis Muhammad M.D. 05/27/2020 8:56 PM
[2020-05-27] MEDS ORDERED: fentaNYL citrate 100 MCG/2 ML VIAL IV STA (21:08)
[2020-05-28] MEDS ORDERED: SODIUM CHLORIDE 0.9% 1000ML 1,000 ML IV SCH (00:06)
[2020-05-28] MEDS ORDERED: ALBUTEROL HFA 8 GM INHALER INH PRN (00:06)
[2020-05-28] MEDS ORDERED: ASPIRIN 81 MG CHEW PO STA (00:06)
[2020-05-28] MEDS ORDERED: NITROGLYCERIN SL 0.4 MG/TAB TAB SL PRN (00:06)
[2020-05-28] MEDS ORDERED: HydrALAZINE HCL 20 MG/ML VIAL IV PRN (00:54)
[2020-05-28] MEDS ORDERED: AMLODIPINE BESYLATE 5 MG TAB PO ONE ×2 (01:00→14:48)
[2020-05-28] MEDS ORDERED: ASCORBIC ACID 500 MG TAB PO SCH (01:00)
[2020-05-28] MEDS ORDERED: APIXABAN 2.5 MG TAB PO SCH (01:00)
--- NOTE | 2020-05-28 01:46 | History and Physical Report ---
DATE OF ADMISSION: 05/27/2020 CHIEF COMPLAINT: Chest pain and left hand weakness. HISTORY OF PRESENT ILLNESS: This is a 60-year-old female with past medical history significant for impaired fasting glucose, dyslipidemia, obstructive sleep apnea not compliant with CPAP, restrictive lung disease, hypertension, morbid obesity, history of uterine cancer status post surgery. The patient recently presented to the hospital due to hypoxemic respiratory failure due to COVID-19 and pneumonia. She was admitted on 05/18/2020 and was discharged on 05/22/2020. At that time, she was treated with 5 days of remdesivir and she just completed 10 days of dexamethasone and she completed a 7-day course of doxycycline and while in the hospital, she also received Rocephin . During hospitalization cultures grew coag negative staph not lugdunensis, possible contamination. Repeat cultures grew no growth. At that time, MRSA and staph PCR are negative. D-dimer was elevated at that time at 1260. She was discharged on Eliquis 2.5 mg b.i.d. for 1 month due to increased risk of clot and stroke on COVID patients. At that time, amlodipine was increased to 5 mg daily and she was discharged on potassium supplement because of hypokalemia. The patient says today morning,when she woke up, she has chest pain left-sided chest, dull aching, pain radiating to the back and also felt weakness in the left hand. By the afternoon chest pain eased out, but she still had some weakness in the left upper extremity. When she was ambulating, she was getting short of breath and chest pain was getting worse.Called Nursing line was referred here for further evaluation. Currently resting comfortably and hemodynamically stable. In the ER, troponins are negative. White count is 15. D-dimer is 510. Lipase is 1697. Procalcitonin unremarkable. CT of head is unremarkable. CTA of the chest, no PE, ill-defined bilateral ground-glass opacities seen. Denies any headache. No blurred vision, no earache, no runny nose, no sore throat. She still has some loss of sense of taste. Appetite is good. She is eating good .There is no cough, no fevers, no nausea, no abdominal pain. Normal bowel and bladder movements. No rashes seen. Lives with her . was also diagnosed with COVID, but he is improving. Currently, the patient is saturating fine at 96% on room air. ALLERGIES: No known drug allergies. PAST MEDICAL HISTORY: As mentioned above. PAST SURGICAL HISTORY: Colonoscopy, appendectomy, total abdominal hysterectomy with removal of tubes. MEDICATIONS: The patient is on amlodipine 5 mg p.o. daily, Eliquis 2.5 mg p.o. b.i.d., vitamin D 1000 units p.o. daily, hctz 25 mg p.o. daily, multivitamins p.o. 1 tablet daily, potassium chloride 20 mEq p.o. daily, vitamin C 500 mg p.o. b.i.d., zinc 220 mg p.o. daily, albuterol 2 puffs 4 times a day, Flonase 110 mcg 2 puffs b.i.d., levothyroxine 25 mcg p.o. daily. FAMILY HISTORY: Significant for mother had rheumatoid arthritis, ovarian cancer, diabetes, HENDRIX cirrhosis and transplant, heart disorder, hypertension, lung disorder. Father had colon cancer, hyperlipidemia. SOCIAL HISTORY: , lives with . No smoking, no alcohol, no drug use. REVIEW OF SYMPTOMS: As per HPI. Rest of review of symptoms negative. PHYSICAL EXAMINATION: GENERAL: The patient is morbidly obese, not in acute distress. VITAL SIGNS: Temperature afebrile, pulse 50, respiratory rate 20, blood pressure 167/104, oxygen 96% on room air. HEENT: No pallor, no icterus. Pupils equal, round, and reactive to light. Oral mucosa moist. NECK: Supple, no neck masses seen. CARDIOVASCULAR SYSTEM: S1, S2 heard. Regular rate and rhythm. No murmur, no gallop. RESPIRATORY SYSTEM: Normal AP diameter. No accessory muscle use. No wheezing, no crackles. ABDOMEN: Soft, bowel sounds present, nontender. No distention. CENTRAL NERVOUS SYSTEM: Alert and oriented x3. Speech is clear. No facial droop seen. Mild weakness of left upper extremity, no pronator drift. Coordination was normal. EXTREMITIES: No edema, no erythema. LABORATORY DATA: WBC 15, hemoglobin 15.5, hematocrit 47.4, platelets 307. PT 10.6, INR 1, APTT 23.6. D-dimer 510. Sodium 141, potassium 4.1, chloride 104, bicarb 30, BUN 27, creatinine 1.19, serum glucose 114, calcium 9.2. Total bilirubin 0.4, AST 20, ALT 39, alkaline phosphatase 61. Troponin I less than 0.015. Lipase 1697. Procalcitonin less than 0.05. IMAGING: CT of the head, no acute findings. CTA of the chest, no PE, ill defined bilateral ground-glass opacities likely secondary to atelectasis versus atypical pneumonia. Normal sinus rhythm with rate of 79, no significant change was found. ASSESSMENT AND PLAN: This is a 60-year-old female who presents with chest pain and some questionable left upper extremity weakness. 1. Chest pain. The patient recently diagnosed with COVID-19 and finished 5 days of remdesivir and 10 days of dexamethasone, diagnosed on 05/18/2020 as per previous H and P. Initial troponin and EKG unremarkable. We will keep her n.p.o. We will follow serial cardiac enzymes, echocardiogram, consult Cardiology in a.m. for further recommendations. 2. Left upper extremity weakness, slightly weak starting today morning. CT of the head is unremarkable. We will get an MRI of the head when second set of troponin is negative and consult Neuro for further recommendations. The patient is already on Eliquis. We will add aspirin. Follow lipid profile. 3. COVID-19 diagnosed in 05/18/2020. As per previous H and P, the patient has been not well for 2 weeks with junky cough. They had family camping few weeks ago. The patient thinks at least she is 2 weeks COVID now. She is saturating fine on room air. CTA of the chest, no PE, but showed some ill defined ground-glass opacities. We will monitor. The patient also completed 7 days of doxycycline. Continue Eliquis 2.5 b.i.d. for 1 month as per discharge on 05/22/2020. Leukocytosis mostly from recent Decadron. 4. Obstructive sleep apnea. The patient has CPAP, but says is not compliant with CPAP. We will continue oxygen in the hospital. 5. Hypertension. Continue his home amlodipine/hydrochlorothiazide. Iv hydralazine prn. We will monitor the blood pressure. 6. Hypokalemia. The patient is on potassium supplements. We will continue. Currently, his potassium level is 4.1. 7. Morbid obesity, needs counseling. 8. Impaired fasting glucose. Currently n.p.o. We will place on diabetic diet once she takes p.o. 9. History of uterine cancer, status post surgery. 10. History of restrictive lung disease. Continue home inhalers. 11. Deep venous thrombosis prophylaxis, on Eliquis. DISPOSITION: Closely monitor in the tele floor. Level 1 full code. Expect discharge home and follow with family doctor . BETITO
[2020-05-28 05:03] LABS: Basophils # (auto) 0.01 K/uL (0-0.2); Basophils % (auto) 0.1 %; Eosinophils # (auto) 0.02 K/uL (0-0.5); Eosinophils % (auto) 0.1 %; Hematocrit (blood only) 49.4 % (37-47); Hemoglobin 15.8 g/dL (12.0-16.0); Immature Granulocytes # (auto) 0.09 K/uL (0.00-0.02); Immature Granulocytes % (auto) 0.6 %; Lymphocytes # (auto) 2.71 K/uL (1.2-3.4); Lymphocytes % (auto) 17.9 %; Mean Corpuscular Hemoglobin 26.5 pg (25-34); Mean Corpuscular Volume 82.9 fL (80-100); Mean Platelet Volume 9.9 fL (7.4-10.4); Monocytes # (auto) 1.36 K/uL (0.11-0.59); Neutrophils # (auto) 10.95 K/uL (1.4-6.5); Neutrophils % (auto) 72.3 %; Platelet Count 304 K/uL (130-400); RDW Coefficient of Variation 17.1 % (11.5-14.5); RDW Standard Deviation 52.5 fL (36.4-46.3); Red Blood Count 5.96 M/uL (4.2-5.4); White Blood Count 15.14 K/uL (4.8-10.8)
[2020-05-28 05:23] LABS: BUN Creatinine Ratio 26.6 (10-20); Blood Urea Nitrogen 26 mg/dl (7-18); Calcium 8.7 mg/dl (8.5-10.1); Carbon Dioxide 34 mmol/L (21-32); Chloride 106 mmol/L (98-107); Creatinine Clr Calc Pharmacy 83.5 ml/min; Est GFR (African American) 71.3; Est GFR (Non-African American) 61.5; Glucose 106 mg/dl (70-99); Lipase 1020 U/L (73-393); Magnesium 2.5 mg/dl (1.8-2.4); Potassium 4.2 mmol/L (3.5-5.1); Sodium 142 mmol/L (136-145)
[2020-05-28] MEDS: LEVOTHYROXINE SODIUM 25 MCG TABLET PO SCH (05:28)
[2020-05-28 05:29] LABS: Chol HDL Ratio 3; Cholesterol 145 mg/dl (0-200); HDL Cholesterol 48 mg/dl; LDL Cholesterol Calculated 75 mg/dl; Triglycerides 109 mg/dl (0-150); Troponin I < 0.015 ng/ml (0-0.045); VLDL Cholesterol 22 mg/dl
[2020-05-28] MEDS ORDERED: LEVOTHYROXINE SODIUM 25 MCG TABLET PO SCH (06:30)
[2020-05-28] MEDS ORDERED: POTASSIUM CHLORIDE 10 MEQ TABCR PO SCH (09:00)
[2020-05-28] MEDS ORDERED: MULTIVITAMIN TAB PO SCH (09:00)
[2020-05-28] MEDS ORDERED: CHOLECALCIFEROL 1,000 UNITS 25 MCG TAB PO SCH (09:00)
[2020-05-28] MEDS ORDERED: ZINC SULFATE 220 MG CAPSULE PO SCH (09:00)
[2020-05-28] MEDS ORDERED: FLUTICASONE FUROATE 200MCG 14 PUFFS/INHALER INH SCH (09:00)
[2020-05-28] MEDS ORDERED: ASPIRIN 81 MG ECTAB PO SCH (09:00)
[2020-05-28] MEDS ORDERED: hydroCHLOROthiazide 25 MG TAB PO SCH (09:00)
[2020-05-28] MEDS: FLUTICASONE FUROATE 200MCG 14 PUFFS/INHALER INH SCH (09:07)
[2020-05-28] MEDS: CHOLECALCIFEROL 1,000 UNITS 25 MCG TAB PO SCH (09:08)
[2020-05-28] MEDS: ZINC SULFATE 220 MG CAPSULE PO SCH (09:08)
[2020-05-28] MEDS: hydroCHLOROthiazide 25 MG TAB PO SCH (09:08)
[2020-05-28] MEDS: MULTIVITAMIN TAB PO SCH (09:08)
[2020-05-28] MEDS: POTASSIUM CHLORIDE 10 MEQ TABCR PO SCH (09:08)
[2020-05-28] MEDS: APIXABAN 2.5 MG TAB PO SCH ×2 (09:09→21:00)
[2020-05-28] MEDS: ASCORBIC ACID 500 MG TAB PO SCH ×2 (09:09→21:00)
[2020-05-28] MEDS: ASPIRIN 81 MG ECTAB PO SCH (09:09)
[2020-05-28] MEDS: ACETAMINOPHEN 325 MG TAB PO PRN ×2 (12:09→16:17)
--- NOTE | 2020-05-28 12:11 | Cardiology Consultation ---
Date of Consultation May 28, 2020 Assessment & Plan (1) Pneumonia: (2) COVID-19: (3) Hypertension: At present, she has had three troponin I levels that have been undetectable. A fourth measurement has recently been obtained, the results of this are pending. She feels subjectively improved. Her negative troponin levels along with negative EKG is reassuring, and I do not think her symptoms are related to acute coronary syndrome at present. I reviewed the radiology report of her chest CTA, and reviewed the images independently. As documented in the formal radiology report, I agree that the CT suggests no pericardial effusion. Although the cardiac silhouette is enlarged, per my assessment this is likely due to her LVH as demonstrated on the chest CT, and supported by the EKG findings. There is no prior echocardiogram report available within the [facility] record or her outpatient [facility] record. She is however on both HCTZ and amlodipine as an outpatient and has a history of hypertension. Her blood pressure measurement this morning was high, and she has since received her hydrochlorothiazide and amlodipine, and the measurements will be reassessed. At present, recommended canceling her echocardiogram in an effort to reduce staff exposure as I feel the available data is reassuring. Agree with ongoing thromboembolic prophylaxis with Eliquis. Future considerations include follow-up resting echo and consideration of stress testing if there are additional concerns, after she is recovered from her illness, perhaps 4 to 6 weeks from now. Case discussed by telephone with Dr. Prado. History of Present Illness Attending Physician: Caity Prado MD History of Present Illness Lety Phelps is a 60 year old female assessed in cardiology consultation per the request of Dr Plunkett and Dr Prado for the evaluation of chest pain. Due to the patient's recent diagnosis of COVID-19 related pneumonia this consultation was performed via telemedicine. I reviewed her medical record and diagnostic studies. I interviewed the patient by phone call to her room, 233-1, phone extension [phone]. The patient had recently been admitted to [facility] from 05/18/2020 until 05/22/2020 with respiratory insufficiency related to COVID-19 pneumonia. She had received a course of antibiotic therapy as well as five days of Remdesivir , and also received dexamethasone. She was discharged on Eliquis for DVT prophylaxis. She presented to the emergency department last evening with complaints of a discomfort that started between her shoulder blades and radiated to her anterior chest and left arm yesterday. Her symptoms had subsided overnight. Troponin I has been negative x3, and EKG has been within normal limits x 2 . Per my telephone discussion with her, she feels subjectively improved, with resolution of the left arm discomfort and a "charley horse "sensation she had in her chest. She does have a slight residual back pain. She had noted a signifi cant cough when she had initially been hospitalized with pneumonia, but she feels that this has improved/resolved over the last few days and currently she denies any cough. Allergies Allergy/AdvReac Type Severity Reaction Status Date / Time No Known Allergies Allergy Verified 05/27/20 18:36 Home Medications Home Medications Medication Instructions Recorded Confirmed Type Flovent HFA 2 puff INHALATION BID 05/18/20 05/27/20 History albuterol sulfate 2 puff INHALATION QID PRN 05/18/20 05/27/20 History hydrochlorothiazide 25 mg PO QAM 05/18/20 05/27/20 History levothyroxine 25 mcg PO QAM 05/18/20 05/27/20 History apixaban [Eliquis] 2.5 mg PO BID 30 Days #60 tab 05/22/20 05/27/20 Rx ascorbic acid (vitamin C) [Vitamin 500 mg PO BID 30 Days #60 tab 05/22/20 05/27/20 Rx C] multivitamin [Daily-Tres] 1 tab PO QAM 30 Days #30 tab 05/22/20 05/27/20 Rx zinc sulfate [Orazinc] 220 mg PO QAM 30 Days #30 cap 05/22/20 05/27/20 Rx amlodipine [Norvasc] 5 mg PO DAILY@199905/27/20 05/27/20 History cholecalciferol (vitamin D3) 1,000 unit PO QAM 05/27/20 05/27/20 History [Vitamin D3] potassium chloride 10 meq PO QAM 05/27/20 05/27/20 History Patient History Medical History Asthma Hypertension Obesity Thyroid disease Social History Smoking Status: Never smoker Hx Alcohol Use: No Hx Substance Use: No Preferred Language: Kiswahili Communication Ability: Effective 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 Results & Data ([facility]) Vital Signs (Past 12 Hours) Vital Signs Temp Pulse Pulse Resp BP Pulse Ox 05/28/20 09:15 36.5 C 57 L 22 171/100 H 95 05/28/20 07:36 59 L 05/28/20 05:03 36.7 C 50 L 18 174/92 H 95 05/28/20 01:03 58 L 05/28/20 00:08 36.8 C 54 L 187/106 H 96 Diagnostic Findings Summary of radiology report of chest CTA 05/27/2020: CTA: Moderate cardiomegaly. No pericardial effusion. No thoracic aortic aneurysm or dissection. Patency of the imaged great vessels. Suboptimal violation of the pulmonary artery secondary to respiratory motion artifact and contrast bolus timing. No central pulmonary emboli identified. CT CHEST: Unremarkable thyroid. No adenopathy. Mild bilateral groundglass opacities are most pronounced in the bilateral midlung distributions. No airspace consolidation, pleural effusion or pneumothorax. No suspicious pulmonary nodules or masses. Central airways are patent. Hepatomegaly with hepatic steatosis. Colonic diverticulosis. Soft tissues are unremarkable. Bones appear grossly intact. IMPRESSION: 1. Limited evaluation of the pulmonary arterial tree as above. No central pulmonary emboli identified. 2. Ill-defined bilateral groundglass opacities may be secondary to atelectasis versus atypical pneumonia. 3. No pleural effusion or adenopathy. 4. Moderate cardiomegaly. 5. Hepatic steatosis. Cardiac Enzymes 05/27/20 05/28/20 05/28/20 Range/Units 20:00 04:40 11:20 AST 20 (15-37) U/L Troponin I < 0.015 < 0.015 < 0.015 (0-0.045) ng/ml Coagulation 05/27/20 Range/Units 20:00 PT 10.6 (9.0-12.0) Seconds APTT 23.6 (21.0-31.0) Seconds Lipids 05/28/20 Range/Units 04:40 Triglycerides 109 (0-150) mg/dl Cholesterol 145 (0-200) mg/dl HDL Cholesterol 48 mg/dl Cholesterol/HDL Ratio 3 CBC 05/27/20 05/28/20 Range/Units 20:00 04:40 WBC 15.06 H 15.14 H (4.8-10.8) K/uL RBC 5.81 H 5.96 H (4.2-5.4) M/uL Hgb 15.5 15.8 (12.0-16.0) g/dL Hct 47.4 H 49.4 H (37-47) % Plt Count 307 304 (130-400) K/uL Neut # (Auto) 11.71 H 10.95 H (1.4-6.5) K/uL Lymph # (Auto) 1.89 2.71 (1.2-3.4) K/uL [place] # (Auto) 1.32 H 1.36 H (0.11-0.59) K/uL Eos # (Auto) 0.00 0.02 (0-0.5) K/uL Baso # (Auto) 0.01 0.01 (0-0.2) K/uL Comprehensive Metabolic Panel 05/27/20 05/28/20 Range/Units 20:00 04:40 Sodium 141 142 (136-145) mmol/L Potassium 4.1 4.2 (3.5-5.1) mmol/L Chloride 104 106 (98-107) mmol/L Carbon Dioxide 30 34 H (21-32) mmol/L BUN 27 H 26 H (7-18) mg/dl Creatinine 1.19 0.99 (0.6-1.2) mg/dl Glucose 114 H 106 H (70-99) mg/dl Calcium 9.2 8.7 (8.5-10.1) mg/dl AST 20 (15-37) U/L ALT 39 (12-78) U/L Alkaline Phosphatase 61 (45-117) U/L Total Protein 6.7 (6.4-8.2) gm/dl Albumin 2.9 L (3.4-5.0) gm/dl Intake and Output 05/27/20 05/28/20 05/28/20 22:59 06:59 14:59 Intake Total 1000 / 1000 Balance 1000 / 1000 Intake: IV 1000 / 1000 Nss 1000ML 1,000 ml @ 100 mls/ 1000 / 1000 hr IV .Q10H JENNIFER Rx#:[id number] Other: Other Intake Source NPO # Unmeasured Voids 1 Weight 149.6 kg 149.9 kg EKG performed 05/27/2020, 1710, with tracing reviewed independently revealed normal sinus rhythm, minimal voltage for LVH, there is baseline artifact, but no gross repolarization changes are noted. A repeat tracing was performed today 05/28/2020, 9:22 AM, which was of better technical quality, with findings of sinus bradycardia 56 bpm, left ventricular hypertrophy by voltage criteria, no repolarization changes. (1) Pneumonia Laterality: left Lung location: lower lobe of lung Pneumonia type: due to unspecified organism Qualified Code(s): J18.9 - Pneumonia, unspecified organism
--- NOTE | 2020-05-28 14:34 | Communication Note ---
Date of Service: May 28, 2020 Lety is 60 years old suffers from hypertension, morbid obesity, asthma, thyroid disease has had a hysterectomy and was admitted on May 18 for symptoms compatible with COVID-19 about 2 weeks duration occurring in the setting of a positive COVID-19 test and her and a subsequent positive rapid test in herself. She was in the hospital for 5 days was treated with antivirals, several antibiotics, steroids and was discharged on Eliquis as a prophylaxis against vascular events due to the hyper coagulability associated with COVID-19. I refer the reader to the extensive history and physical and the discharge summary from her last admission for more details She is now back in the hospital having suffered an event of acute cramping chest pain yesterday and during this event had a sense of cramping and weakness in her left arm to the point that she had difficulty holding and lifting objects and may have had some visual blurring and a slight headache. She does not really describe any numbness or tingling. The deficits when she arrived in the emergency room were incredibly minor and attention was mainly paid to her chest pain. She had a head CT which showed no significant abnormalities had a CT angiography of her chest which stated simply that the great vessels were patent but upon review of the limited images available to me I really cannot trace the course of any of the vessels supplying the brain beyond the lower cervical area. She was appropriately placed on aspirin in addition to her Eliquis, cardiology has been consulted, multiple cardiac enzyme levels have been obtained and are not consistent with an infarction. There is some cardiomegaly. An outpatient echocardiogram is being considered. The question to neurology is whether this was a TIA as she is now virtually without symptoms could use her left hand to converse with me by telephone was used again to manipulate objects and had very few complaints referable to that and has been symptom-free for perhaps 12 hours and the deficits that she did have were very brief duration perhaps an hour or less. Unfortunately can never be certain that she did have a small demonstrable infarct or an embolic shower. These issues are to some degree academic as she is now on dual anticoagulation with a novel agent and low-dose aspirin and there is certainly nothing we are going to do acutely from a medical or surgical point of view in the setting of persistent or probable persistent COVID-19 infection. In an ideal world she would have a CT angiographic study of the head neck and CT scan of the head at the 48-hour post clearing of symptoms interval and if these were negative we could likely stop the aspirin We could also probably settle for a carotid ultrasound and a noncontrast CT of the head She is too obese to undergo MRI scanning. Obviously MRI would be much more diagnostic however CT angiography and scan combination however has the advantage of minimizing exposure to one area of the hospital rather than bringing ultrasound into play and frankly all of these could wait for an outpatient assessment at a time when she is no longer potentially infectious and no longer in quarantine I am going to discuss this plan or recommendation with her attending physician but frankly feel that she could probably be maintained on the dual anticoagulation program and have the requested studies done on an outpatient basis in 2 to 4 weeks when she is truly virus negative and has gone through the required quarantine. I believe cardiology is also of similar mind regarding performance of an echocardiographic study Michi Peck MD
--- NOTE | 2020-05-28 17:25 | Hospitalist Progress Note ---
Date of Service May 28, 2020 Assessment & Plan (1) Chest pain: Patient presented with left-sided chest pain, with radiation to left arm and weakness On admission troponin remains negative EKG unremarkable Patient with from cardiology, does not believe patient's chest discomfort is secondary to acute coronary syndrome, Possibly ongoing symptoms secondary to residual COVID-19 pneumonitis Recommend supportive care Patient will better benefit with transthoracic echo, and possible stress test as an outpatient in 4 to 5 weeks later when patient is infection free/COVID-19 negative. COVID-19 positive Recently diagnosed with COVID-19 finished 5 days of remdesivir and 10 days of dexamethasone COVID-19 PCR positive was 05/18/2020 Repeat test was not ordered at this patient most likely will be positive Patient placed on airborne and droplet precaution during hospital stay Will need to continue home current time as per current CDC guidelines Left upper extremity weakness: Symptom has improved, CT head does not show any acute change Pain is morbidly obese, MRI of head was not able to done, Appreciate input from neurology patient was on Eliquis for thromboembolic prophylaxis for her COVID-19 status Possible TIA, neurological work-up: Carotid ultrasound, CTA of head and neck not ordered to limit infection, should be done as an outpatient in 4 to 6 weeks when patient is COVID-19 negative At present additional testing would not change any treatment outcome Recommends to start patient on aspirin 81 mg daily Neurology office visit/tele medicine visit in 4 to 6 weeks Elevated lipase Not sure of the etiology, patient denies of any nausea abdominal pain or discomfort no right upper quadrant pain And has been tolerating low-fat diet LFTs are within normal limits Repeat lab ordered in a.m. Leukocytosis hypertension : Pressure remains persistently elevated, patient is on hydrochlorothiazide, Norvasc 5 mg daily P.o. Norvasc dose increased to 10 mg, Given morbid obesity high likelihood of obstructive sleep apnea, obesity hypoventilation syndrome, leading to pulmonary hypertension as well She may benefit of adding a low-dose diuretics, Lasix Discussed with cardiology DVT prophylaxis: On Eliquis CODE STATUS: Full code Disposition: pt remains asymptomatic, no shortness of breath no chest pain, no cough remains in room air, plan is to discharge home possibly next 24 to 48 hours (2) COVID-19: Admission and Anticipated Discharge Date Admission Date: May 27, 2020 Subjective No complaint of chest pain, or shortness of breath, has persistent left arm weakness, improved than before No cough, no fever or chills Review of Systems Review of Systems: All systems reviewed & are unremarkable except as noted in HPI & below Physical Exam Constitutional: WD/WN, vitals as above + morbidly obese; no acute distress Eyes: sclerae not anicteric ENMT: external ear and nose normal, oropharynx normal Neck: trachea midline, no thyromegaly Respiratory: normal respiratory effort, lungs clear to auscultation Cardiovascular: Rate/Rhythm: regular rate and regular rhythm Gastrointestinal (Abdomen): Inspection/Auscultation: + abdomen distended Percussion/Palpation: abdomen soft; abdomen nontender Musculoskeletal: Left arm weakness 4 x 5, normal strength of left lower extremity, Normal exam of right upper and lower extremity Skin: no rashes, warm and dry Neurologic: PERRL, EOMI, accommodation nl, no face palsy, no dysarthria Left upper extremity weakness Psychiatric: A+Ox3, euthymic affect Results & Data Results & Data ([facility]) Vital Signs (Past 12 Hours) Vital Signs Temp Pulse Pulse Resp BP Pulse Ox 05/28/20 15:32 55 L 05/28/20 12:05 36.5 C 63 16 165/85 H 95 05/28/20 09:15 36.5 C 57 L 22 171/100 H 95 05/28/20 07:36 59 L (1) Chest pain Chest pain type: unspecified Qualified Code(s): R07.9 - Chest pain, unspecified
[2020-05-28] MEDS ORDERED: AMLODIPINE BESYLATE 5 MG TAB PO SCH ×2 (20:00)
--- NOTE | 2020-05-29 04:51 | Electrocardiogram Report ---
Test Reason : Blood Pressure : / mmHG Vent. Rate : 079 BPM Atrial Rate : 079 BPM P-R Int : 152 ms QRS Dur : 084 ms QT Int : 376 ms P-R-T Axes : 059 -23 062 degrees QTc Int : 431 ms Normal sinus rhythm Minimal voltage criteria for LVH, may be normal variant Borderline ECG When compared with ECG of 18-MAY-2020 17:28, No significant change was found Confirmed by Eddi Santacruz ([id number]) on 05/29/2020 4:51:02 AM Referred By: Asuncion Huynh Confirmed By:Eddi Santacrzu
[2020-05-29] MEDS: LEVOTHYROXINE SODIUM 25 MCG TABLET PO SCH (04:53)
--- NOTE | 2020-05-29 05:05 | Electrocardiogram Report ---
Test Reason : Blood Pressure : / mmHG Vent. Rate : 056 BPM Atrial Rate : 056 BPM P-R Int : 182 ms QRS Dur : 092 ms QT Int : 460 ms P-R-T Axes : 060 -12 066 degrees QTc Int : 443 ms Sinus bradycardia Minimal voltage criteria for LVH, may be normal variant Borderline ECG When compared with ECG of 27-MAY-2020 17:10, No significant change was found Confirmed by Eddi Santacruz ([id number]) on 05/29/2020 5:04:56 AM Referred By: Asuncion Huynh Confirmed By:Eddi Santacruz
[2020-05-29 07:28] LABS: Basophils # (auto) 0.01 K/uL (0-0.2); Basophils % (auto) 0.1 %; Eosinophils # (auto) 0.19 K/uL (0-0.5); Eosinophils % (auto) 1.3 %; Hematocrit (blood only) 44.2 % (37-47); Hemoglobin 14.3 g/dL (12.0-16.0); Immature Granulocytes # (auto) 0.08 K/uL (0.00-0.02); Immature Granulocytes % (auto) 0.6 %; Lymphocytes # (auto) 2.88 K/uL (1.2-3.4); Lymphocytes % (auto) 19.9 %; Mean Corpuscular Hemoglobin 26.8 pg (25-34); Mean Corpuscular Hgb Conc 32.4 g/dL (32-36); Mean Corpuscular Volume 82.8 fL (80-100); Mean Platelet Volume 10.1 fL (7.4-10.4); Monocytes # (auto) 1.37 K/uL (0.11-0.59); Monocytes % (auto) 9.5 %; Neutrophils # (auto) 9.92 K/uL (1.4-6.5); Neutrophils % (auto) 68.6 %; Platelet Count 220 K/uL (130-400); RDW Coefficient of Variation 17.2 % (11.5-14.5); RDW Standard Deviation 52.5 fL (36.4-46.3); Red Blood Count 5.34 M/uL (4.2-5.4); White Blood Count 14.45 K/uL (4.8-10.8)
[2020-05-29 08:15] LABS: Albumin Level 2.6 gm/dl (3.4-5.0); BUN Creatinine Ratio 26.9 (10-20); Calcium 7.9 mg/dl (8.5-10.1); Creatinine Clr Calc Pharmacy 97.3 ml/min; Est GFR (African American) 85.7; Potassium 3.6 mmol/L (3.5-5.1)
[2020-05-29 08:18] LABS: Albumin Globulin Ratio 0.8 (0.9-2); Bilirubin,Total 0.8 mg/dl (0.2-1); Globulin 3.4 gm/dl (2.5-4.0)
[2020-05-29] MEDS ORDERED: FUROSEMIDE 20 MG TAB PO SCH (09:00)
[2020-05-29] MEDS: CHOLECALCIFEROL 1,000 UNITS 25 MCG TAB PO SCH (09:08)
[2020-05-29] MEDS: MULTIVITAMIN TAB PO SCH (09:08)
[2020-05-29] MEDS: hydroCHLOROthiazide 25 MG TAB PO SCH (09:08)
[2020-05-29] MEDS: ASPIRIN 81 MG ECTAB PO SCH (09:08)
[2020-05-29] MEDS: ZINC SULFATE 220 MG CAPSULE PO SCH (09:09)
[2020-05-29] MEDS: POTASSIUM CHLORIDE 10 MEQ TABCR PO SCH (09:09)
[2020-05-29] MEDS: ASCORBIC ACID 500 MG TAB PO SCH (09:09)
[2020-05-29] MEDS: FLUTICASONE FUROATE 200MCG 14 PUFFS/INHALER INH SCH (09:10)
[2020-05-29] MEDS: APIXABAN 2.5 MG TAB PO SCH (09:10)
--- NOTE | 2020-05-29 09:16 | Communication Note ---
Date of Service: May 29, 2020 Attending note: Chart reviews this morning, BP 152/85, still elevated from the goal range Patient is started on Lasix 20 mg daily, and reduce the dose of Norvasc to 5 mg daily to prevent lower extremity edema. She will be followed with family physician for further monitoring and adjustment of BP medication as indicated pt is Afebrile, remains in room air SPO2 96% Leukocytosis: WBC 14 improved from yesterday, possible secondary to steroid-induced,-patient received dexamethasone for 10 days for COVID-19 infection. Rest of the electrolytes unremarkable, liver function test AST/ALT and alkaline phosphatase-normal level Lipase remains persistently elevated: [id number] today Patient does not have any GI symptoms, no nausea vomiting or abdominal discomfort, has been tolerating heart healthy/low-fat diet well Discussed case briefly with on-call digital printer, given lack of GI symptoms, normal LFTs, single elevation of lipase usually equivocal- Agrees that at present secondary to COVID-19 infection, further GI imaging: Right upper quadrant ultrasound/CT abdomen pelvis -may not be prudent, and will not change any management Asymptomatic elevation of lipase can be followed outpatient with repeat lab work, and if level remains persistently elevated, further GI work-up, and referral to GI Clinic should be done in 4 to 6 weeks / patient is infection free/COVID-19 negative. Patient will continue to be on low-fat diet for next 2 to 3 weeks Given instruction to follow-up with family physician return to ER with any symp toms of abdominal pain nausea vomiting.. Patient is clinically stable to be discharged home later today. Caity Prado MD
--- NOTE | 2020-05-29 15:14 | Discharge Summary ---
Date of Service May 29, 2020 Principal Diagnosis Chest pain, shortness of breath, left upper extremity weakness, possible TIA COVID 19 positive Discharge Exam Constitutional WD/WN, vitals as above + morbidly obese; no acute distress Eyes sclerae not anicteric ENMT external ear and nose normal, oropharynx normal Neck trachea midline, no thyromegaly Respiratory normal respiratory effort, lungs clear to auscultation Cardiovascular Rate/Rhythm: regular rate and regular rhythm Gastrointestinal (Abdomen) Inspection/Auscultation: + abdomen distended Percussion/Palpation: abdomen soft; abdomen nontender Skin no rashes, warm and dry Neurologic PERRL, EOMI, accommodation nl, no face palsy, no dysarthria Psychiatric A+Ox3, euthymic affect Discharge Data Allergies Allergy/AdvReac Type Severity Reaction Status Date / Time No Known Allergies Allergy Verified 05/27/20 18:36 Consultations 05/27/20 21:10 ED Decision to Admit Stat 05/28/20 00:06 Consult Case Management - Discharge Planning Routine 05/28/20 08:00 Consult Cardiology Routine Consult Neurology Routine Ordered Studies 05/27/20 18:07 CT angio chest PE protocol Stat 05/27/20 18:20 CT head/brain wo con Stat Hospital Course (1) Chest pain: Patient presented with left-sided chest pain, with radiation to left arm and weakness On admission troponin remains negative EKG unremarkable Patient with from cardiology, does not believe patient's chest discomfort is secondary to acute coronary syndrome, Possibly ongoing symptoms secondary to residual COVID-19 pneumonitis Recommend supportive care Patient will better benefit with transthoracic echo, and possible stress test as an outpatient in 4 to 5 weeks later when patient is infection free/COVID-19 negative. COVID-19 positive Recently diagnosed with COVID-19 finished 5 days of remdesivir and 10 days of dexamethasone COVID-19 PCR positive was 05/18/2020 Repeat test was not ordered at this patient most likely will be positive Patient placed on airborne and droplet precaution during hospital stay Will need to continue home current time as per current CDC guidelines Left upper extremity weakness: Symptom has improved, CT head does not show any acute change Pain is morbidly obese, MRI of head was not able to done, Appreciate input from neurology patient was on Eliquis for thromboembolic prophylaxis for her COVID-19 status Possible TIA, neurological work-up: Carotid ultrasound, CTA of head and neck not ordered to limit infection, should be done as an outpatient in 4 to 6 weeks when patient is COVID-19 negative At present additional testing would not change any treatment outcome Recommends to start patient on aspirin 81 mg daily Neurology office visit/tele medicine visit in 4 to 6 weeks Elevated lipase LFTs are within normal limits Lipase remains persistently elevated: [id number] today Not sure of the etiology, patient denies of any nausea abdominal pain or discomfort no right upper quadrant pain Patient does not have any GI symptoms, no nausea vomiting or abdominal discomfort, has been tolerating heart healthy/low-fat diet well Discussed case briefly with on-call global regulatory lead, given lack of GI symptoms, normal LFTs, single elevation of lipase usually equivocal- Agrees that at present secondary to COVID-19 infection, further GI imaging: Right upper quadrant ultrasound/CT abdomen pelvis -may not be prudent, and will not change any management Asymptomatic elevation of lipase can be followed outpatient with repeat lab work, and if level remains persistently elevated, further GI work-up, and referral to GI Clinic should be done in 4 to 6 weeks / patient is infection free/COVID-19 negative. hypertension : Chart reviews this morning, BP 152/85, still elevated from the goal range, patient is on hydrochlorothiazide, Norvasc 5 mg daily Given morbid obesity high likelihood of obstructive sleep apnea, obesity hypoventilation syndrome, leading to pulmonary hypertension as well CT chest with contrast shows evidence of left ventricular hypertrophy suggestive of poorly controlled chronic hypertension Patient is started on Lasix 20 mg daily, keep Norvasc to 5 mg daily to prevent lower extremity edema. Was on potassium supplement 10 M EQ daily P.o. potassium supplement increased to 20 MEQ p.o. daily-to prevent hypokalemia as patient is going to be on dual diuretics hydrochlorothiazide and Lasix Discussed with cardiology She will be followed with family physician for further monitoring and adjustment of BP medication as indicated pt is Afebrile, remains in room air SPO2 96% Leukocytosis: WBC 14 improved from yesterday, possible secondary to steroid-induced,-patient received dexamethasone for 10 days for COVID-19 infection. Rest of the electrolytes unremarkable, liver function test AST/ALT and alkaline phosphatase-normal level Patient will continue to be on low-fat diet for next 2 to 3 weeks Given instruction to follow-up with family physician return to ER with any symptoms of abdominal pain nausea vomiting.. DVT prophylaxis: On Eliquis CODE STATUS: Full code Patient is clinically stable to be discharged home today (2) COVID-19: Total Time Total Time Spent Total Time Spent (In Minutes): 30 minutes Total Time Includes: Discharge Planning and Medication Reconciliation Discharge Plan Discharge Items Patient Disposition: Home - Home Health Services Reason For Visit: CHEST PAIN, LEFT UPPER EXTREMITY WEAKNESS Discharge Diagnosis: Chest pain, shortness of breath, left upper extremity weakness, possible TIA COVID 19 positive Condition on Discharge: Fair Activity: Resume your previous activity Non-emergency contact: Primary Care Provider Call non-emergency contact if: you have any medication questions Follow-up/Referrals: Christofer Siegel [Physician] - (Follow up with GI in 4-6 weeks for elevated lipase level ) Theodora Loya PA-C [Physician Volleyball Assembler] - (please Request for Tele Medicine visit ) Asuncion Huynh MD [Primary Care Provider] - Diet: Heart Healthy and Low Fat Ambulatory Orders: Basic Metabolic Panel (Routine) Timeframe: 1 Week Location: Determined by Patient Ordered By: Caity Prado Hepatic Function (Liver) Panel (Routine) Timeframe: 1 Week Location: Determined by Patient Ordered By: Caity Prado Lipase (Routine) Timeframe: 1 Week Location: Determined by Patient Ordered By: Caity Lewistl Attending Provider Instructions: Home Isolation COVID-19 Instructions The following information about Home Isolation is from the CDC Website: https://www.cdc.gov/coronavirus/2019-ncov/hcp/tdfqneyg-ofvoyww-aatofk.html Stay home except to get medical care People who are mildly ill with COVID-19 are able to isolate at home during their illness. You should restrict activities outside your home, except for getting medical care. Do not go to work, school, or public areas. Avoid using public transportation, ride-sharing, or taxis. Separate yourself from other people and animals in your home People: As much as possible, you should stay in a specific room and away from other people in your home. Also, you should use a separate bathroom, if available. Animals: You should restrict contact with pets and other animals while you are sick with COVID-19, just like you would around other people. Although there have not been reports of pets or other animals becoming sick with COVID-19, it is still recommended that people sick with COVID-19 limit contact with animals until more information is known about the virus. When possible, have another member of your household care for your animals while you are sick. If you are sick with COVID-19, avoid contact with your pet, including petting, snuggling, being kissed or licked, and sharing food. If you must care for your pet or be around animals while you are sick, wash your hands before and after you interact with pets and wear a face mask. Call ahead before visiting your doctor If you have a medical appointment, call the healthcare provider and tell them that you have or may have COVID-19. This will help the healthcare providers office take steps to keep other people from getting infected or exposed. Wear a face mask You should wear a face mask when you are around other people (e.g., sharing a room or vehicle) or pets and before you enter a healthcare providers office. If you are not able to wear a face mask (for example, because it causes trouble breathing), then people who live with you should not stay in the same room with you, or they should wear a face mask if they enter your room. Cover your coughs and sneezes Cover your mouth and nose with a tissue when you cough or sneeze. Throw used tissues in a lined trash can. Immediately wash your hands with soap and water for at least 20 seconds or, if soap and water are not available, clean your hands with an alcohol-based hand railroad brake repairer that contains at least 60% alcohol. Clean your hands often Wash your hands often with soap and water for at least 20 seconds, especially after blowing your nose, coughing, or sneezing; going to the bathroom; and before eating or preparing food. If soap and water are not readily available, use an alcohol-based hand railroad brake repairer with at least 60% alcohol, covering all surfaces of your hands and rubbing them together until they feel dry. Soap and water are the best option if hands are visibly dirty. Avoid touching your eyes, nose, and mouth with unwashed hands. Avoid sharing personal household items You should not share dishes, drinking glasses, cups, eating utensils, towels, or bedding with other people or pets in your home. After using these items, they should be washed thoroughly with soap and water. Clean all high-touch surfaces everyday High touch surfaces include counters, tabletops, doorknobs, bathroom fixtures, toilets, phones, keyboards, tablets, and bedside tables. Also, clean any surfaces that may have blood, stool, or body fluids on them. Use a household cleaning spray or wipe, according to the label instructions. Labels contain instructions for safe and effective use of the cleaning product including precautions you should take when applying the product, such as wearing gloves and making sure you have good ventilation during use of the product. Monitor your symptoms Seek prompt medical attention if your illness is worsening (e.g., difficulty breathing).Beforeseeking care, call your healthcare provider and tell them that you have, or are being evaluated for, COVID-19. Put on a face mask before you enter the facility. These steps will help the healthcare providers office to keep other people in the office or waiting room from getting infected or exposed. Ask your healthcare provider to call the local or state health department. Persons who are placed under active monitoring or facilitated self- monitoring should follow instructions provided by their local health department or occupational health professionals, as appropriate. When working with your local health department check their available hours. If you have a medical emergency and need to call 911, notify the dispatch personnel that you have, or are being evaluated for COVID-19. If possible, put on a face mask before emergency medical services arrive. Discontinuing home isolation Patients with confirmed COVID-19 should remain under home isolation precautions until the risk of secondary transmission to others is thought to be low. The decision to discontinue home isolation precautions should be made on a [id number] basis, in consultation with healthcare providers and state and local health departments. Addtl Warehouse Traffic Supervisor Provider Instructions: Continue home isolation guidelines for COVID-19 positive Need to follow-up with cardiology office in 4-6 weeks for cardiac echo, and possible stress test if indicated Follow-up with neurology in 6 to 8 weeks, You will need further neurological work-up, carotid ultrasound, CTA/CT angiogram of head and neck for further evaluation/stroke work-up Your blood pressure remains elevated, Lasix 20 mg daily -for high blood pressure Potassium supplement increased to 20 meq by mouth daily Please follow-up with your family physician for further medication adjustment and follow-ups one of you lab work : Lipase level remains elevated -usually it indicates either gall bladder or pancreas disease repeat lab work ordered in a week please call you family physician with any symptoms of nausea /vomiting , pain in abdomen stay on low fat diet for 2-3 weeks , Pending Studies at Discharge: Yes Studies:: Lab work: Basic metabolic panel in 1 week Liver function test, lipase level in 1 week Stand-Alone Forms: My [facility], Smoking Cessation Medications and DC Order Prescriptions: New furosemide [Lasix] 20 mg tablet 20 mg PO DAILY Qty: 20 RF: 0 amlodipine [Norvasc] 5 mg Tablet 5 mg PO DAILY@1999 30 Days Qty: 30 RF: 0 potassium chloride 20 mEq tablet extended release 20 meq PO DAILY Qty: 30 RF: 3 Continued albuterol sulfate 90 mcg/actuation HFA aerosol inhaler 2 puff INHALATION QID PRN (Reason: Shortness Of Breath Or Wheezing) RF: 0 levothyroxine 25 mcg tablet 25 mcg PO QAM RF: 0 hydrochlorothiazide 25 mg tablet 25 mg PO QAM RF: 0 Flovent HFA 110 mcg/actuation HFA aerosol inhaler 2 puff INHALATION BID RF: 0 multivitamin [Daily-Tres] Tablet 1 tab PO QAM 30 Days Qty: 30 RF: 0 ascorbic acid (vitamin C) [Vitamin C] 500 mg Tablet 500 mg PO BID 30 Days Qty: 60 RF: 0 zinc sulfate [Orazinc] 220 (50) mg Capsule 220 mg PO QAM 30 Days Qty: 30 RF: 0 Eliquis 2.5 mg Tablet 2.5 mg PO BID 30 Days Qty: 60 RF: 0 cholecalciferol (vitamin D3) [Vitamin D3] 25 mcg (1,000 unit) tablet 1,000 unit PO QAM RF: 0 Discontinued potassium chloride 10 mEq tablet extended release 10 meq PO QAM RF: 0 amlodipine [Norvasc] 5 mg tablet 5 mg PO DAILY@1999 RF: 0 Discharge Orders: Discharge Order (Routine); Ordered 05/29/20 Ordered By: Caity Bui/Other Patient Handouts: Low-Fat Cooking Tips, Adding Flavor to Low-Fat Meals, ED Diet, Low Fat Admission Data Admit Date/Time: 05/27/20 23:01 Attending Provider: Caity Prado Admit Provider: Eleazar Plunkett Primary Care Provider: sAuncion Huynh Other Providers: Eleazar Plunkett ; Lucio Holguin ; Theodora Loya ; Michi Peck ; Theodora Sunshine ; Frantz Beltran.
[2020-05-29] MEDS ORDERED: AMLODIPINE BESYLATE 5 MG TAB PO SCH (20:00)
== END 2020-05-29 16:42 | disposition home or self-care (01) | DRG 177 ==
LOC: ED 16:47 → 2S 23:01